=== PATIENT | female | born 1950 | race Caucasian/White ===

== ENCOUNTER 2020-04-02 22:30 | Inpatient (IN) | payer MEDICARE, MEDICAID, SELFPAY ==
--- NOTE | ~2020-04-02 | CT_ITS ---
EXAMINATION: CT abdomen pelvis wo con DATE: 04/03/2020 00:41 INDICATION: Abdominal pain. Gastrointestinal bleeding. TECHNIQUE: Computed tomography (CT) of the abdomen and pelvis was performed without intravenous contr ast. Automated exposure control and iterative reconstruction technique were employed. Exam dose: 159 8.79 mGy-cm total exam DLP. COMPARISON: None. FINDINGS: The lung bases are clear of consolidation. Normal heart size. No pericardial or pleural effusion. Small sliding hiatal hernia. Diffuse hepatic steatosis. No hepatic space-occupying mass lesion is evident. Hyperdense bile in the gallbladder. No gallbladder wall thickening or pericholecystic fluid or stranding is evident. No bile duct dilatation. No pancreatic mass lesion, calcification or ductal dilatation is evident. Normal splenic size. Several calcified splenic granulomas consistent with old granulomatous disease. No adrenal mass lesion. No apparent renal mass lesion is noted on this limited noncontrast examination. No ureteral calculus or hydroureteronephrosis. There is a Taylor catheter within the completely evacuated urinary bladder. Uterus and adnexal areas a re unremarkable. There is extensive calcification of the abdominal aorta and calcification at the origins of the patrice c, superior mesenteric and renal arteries as well as extensive iliac and femoral artery calcification . No abdominal aortic aneurysm. No intraperitoneal or retroperitoneal or pelvic mass lesion or adenopathy or ascites. There is a large umbilical hernia containing a large loop of nonobstructed non strangulated transvers e colon. Normal appendix. No bowel obstruction, bowel wall thickening, pneumatosis or intraperitoneal free air. Severe degenerative change in particular at the facet joints at L5-S1. Grade 1 anterolisthesis at L4- 5. There are erosive changes of the left sacroiliac joint. IMPRESSION: Large umbilical hernia containing one loop of nonobstructed colon Hepatic steatosis Reviewed, dictated and finalized at [facility]. Reviewed, dictated and finalized at location [facility]. 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
--- NOTE | ~2020-04-02 | XR_ITS ---
XR chest 1V portable DATE: 04/03/2020 02:24 INDICATION: Leukocytosis. Gastrointestinal bleeding. TECHNIQUE: Portable AP chest on 04/03/2020 at 0224 hours COMPARISON: 01/03/2004 PA and lateral chest FINDINGS: Normal heart size. Aortic calcification and mild unfolding. There is old pulmonary granulom atous disease. No pulmonary infiltrate or consolidation, pleural effusion or pulmonary vascular congestion or pneumo thorax. Severe osteoarthritic change at the left glenohumeral joint. There appears to be some deformity of th e right glenohumeral area. Diffuse osteopenia. IMPRESSION: No active cardiopulmonary disease Reviewed, dictated and finalized at location [facility]. ESTATE VALUER
--- NOTE | ~2020-04-02 | XR_ITS ---
EXAMINATION: XR chest port-a-cath/central 04/03/2020 16:55 INDICATION: Central line placement PROCEDURE: AP portable chest COMPARISON: No prior studies for comparison. FINDINGS: The lungs are clear. The cardiomediastinal silhouette is within normal limits. There are no pleural effusions. There is no pneumothorax suspected. There is a left IJ central line, tip near the junction of the brachiocephalic vein and SVC. There are advanced degenerative changes of the saritha ulders with age-indeterminate fracture of the right glenoid process. IMPRESSION: 1: NO ACUTE CARDIOPULMONARY DISEASE. 2: Age-indeterminate fracture right glenoid process. Advanced osteoarthritis of the glenohumeral join ts. Reviewed, dictated and finalized at location [facility]. CE REP IMPRESSION: 1: NO ACUTE CARDIOPULMONARY DISEASE. 2: Age-indeterminate fracture right glenoid process. Advanced osteoarthritis of the glenohumeral joints.
--- NOTE | ~2020-04-02 | US_ITS ---
EXAMINATION: US renal BI DATE: 04/03/2020 15:38 INDICATION: Acute on chronic kidney disease. TECHNIQUE: Multiple ultrasound grayscale images of the kidneys were obtained. COMPARISON: CT abdomen and pelvis 04/03/2020 FINDINGS: The right kidney measures 10.2 x 5.2 x 6.1 cm. The left kidney measures 9.0 x 5.6 x 3.5 cm. The kidne ys demonstrate normal parenchymal echogenicity. There is no hydronephrosis. The bladder is decompress ed by a Taylor catheter. IMPRESSION: 1. Normal kidneys. No hydronephrosis. Reviewed, dictated and finalized at location A. FICIAL BREEDING RANCH SUPERVISOR
--- NOTE | ~2020-04-02 | XR_ITS ---
XR chest 1V portable DATE: 04/05/2020 05:29 INDICATION: Hypotension TECHNIQUE: Portable AP chest on April 05, 2020 at 0508 hours COMPARISON: April 03, 2020 portable AP chest at 1632 hours FINDINGS: Left internal jugular central venous catheter tip overlies the proximal superior vena cava. No pulmonary infiltrate or consolidation, pleural effusion or pulmonary vascular congestion or pneumo thorax is evident. The cardiac and mediastinal silhouettes are unremarkable. There is aortic arch jake cification. Prominent osteoarthritic changes at the glenohumeral joints and chronic fracture deformity of the rig ht glenoid process of the scapula. Diffuse osteopenia. IMPRESSION: Left internal jugular central venous catheter tip overlying proximal superior vena cava; no pneumothorax No active cardiopulmonary disease Reviewed, dictated and finalized at location A. CIATE PROFESSOR OF GEOLOGY IMPRESSION: Left internal jugular central venous catheter tip overlying proxima l superior vena cava; no pneumothorax No active cardiopulmonary disease
[2020-04-02 22:29] VITALS: BP 92/55; PULSE 85; RESP 17; TEMP 36.5; O2SAT 96
--- NOTE | 2020-04-02 22:42 | ED.GIBLEED ---
HPI - GI Bleed General Chief complaint: GI Bleed Stated complaint: gi bleed Source: patient and EMS Mode of arrival: EMS Limitations: no limitations History of Present Illness HPI Narrative: A 70-year-old female came into the emergency department tonight with complaints of an upper GI bleed. Per her shelter the patient vomited once what appeared to be coffee-ground emesis. They note that they called the ambulance when she had a second episode of mary ann black emesis that was large in quantity. Patient is at A+O x1 at baseline and is unable to provide any meaningful history. Related Data Home Medications Medication Instructions Recorded Confirmed acetaminophen 650 mg PO Q6H PRN 04/02/20 bisacodyl 5 mg PO HS 04/02/20 diphenhydramine HCl [Diphenhist] 25 mg PO HS 04/02/20 docusate sodium 100 mg PO DAILY 04/02/20 heparin, porcine (PF) 5,000 unit SUBCUT Q8H 04/02/20 magnesium citrate 150 ml PO ONCE 04/02/20 quetiapine 25 mg PO HS 04/02/20 zinc sulfate 220 mg PO DAILY 04/02/20 Allergies Allergy/AdvReac Type Severity Reaction Status Date / Time No Known Allergies Allergy Unknown Verified 12/13/09 10:01 Review of Systems Review of Systems: ROS unobtainable: Yes unobtainable due to mental status PMFSH Past Medical History Medical History Pain associated with wound Pain in wound Exam Narrative: Exam Narrative: GENERAL: Well-appearing, well-nourished, and in no acute distress. Morbidly obese HEAD: Normocephalic, atraumatic. EYES: PERRLA and EOMI. ENT: Nares clear, no rhinorrhea or epistaxis. Mucous membranes dry. Tongue black with emesis. NECK: Supple. No adenopathy or masses. No carotid bruits or JVD CHEST: Clear to auscultation. No respiratory distress. No wheezes rales or rhonchi HEART: Regular rate and rhythm. No murmur heard. Normal peripheral pulses. ABDOMEN: Obese abdomen soft, nontender, nondistended, normal active bowel sounds. Large ventral wall hernia. : Taylor catheter in place EXTREMITIES: Normal range of motion. No edema. SKIN: Warm, dry, no rash. NEURO: No focal deficits. Alert and oriented x1. PSYCH: Normal mood and affect. Course Reevaluation(s) Reevaluation #1: Patient has been resting comfortably. She is receiving blood transfusion, her blood pressures have consistently improved to 120s over 70s. Patient resting comfortably at this time, has no further questions. Informed her of the plan to admit with a GI consult. Time: 01:55 Consultations Consultation #1: Case discussed with Dr. Flannery, gastroenterology. He has been made aware of the patient's presentation evaluation and findings in the work-up. After full discussion of the patient he agrees to consult and see the patient in the morning. Time: 00:17 Consultation #2: Is assessed with Dr. Arevalo, hospitalist services. Dr. Arevalo agrees to accept patient for continued management and admission. Time: 02:10 Vital Signs Vital signs: Vital Signs Temperature 36.5 C 04/02/20 22:29 Pulse Rate 85 04/02/20 22:29 Respiratory Rate 17 04/02/20 22:29 Blood Pressure 92/55 L 04/02/20 22:29 Pulse Oximetry 96 04/02/20 22:29 Temperature 36.2 C L 04/03/20 01:28 Pulse Rate 74 04/03/20 01:56 Respiratory Rate 21 H 04/03/20 01:56 Blood Pressure 123/74 04/03/20 01:56 Pulse Oximetry 98 04/03/20 01:56 MDM - GI Bleed MDM Narrative Medical decision making narrative: In brief this 70-year-old female was transferred into the emergency department from her shelter. Report on why the patient came in and what exactly was going on was unclear. We did know that she had 2 episodes of dark emesis that appeared to be like coffee grounds. Review of the results faxed to us from the patient's recent admission shows that she is receiving heparin shots for clot prevention. Upon review of the documents that showed that she was receiving 5000 units daily. Next patient was
--- NOTE | 2020-04-02 22:44 | ECG_ITS ---
Measurements Intervals [place] Rate: 80 P: 28 MS: 127 QRS: -9 QRSD: 93 T: 103 QT: 384 QTc: 445 Interpretive Statements SINUS RHYTHM INCOMPLETE RIGHT BUNDLE BRANCH BLOCK LOW QRS VOLTAGE IN PRECORDIAL LEADS BORDERLINE ST-T WAVE ABNORMALITY- DIFFUSE LEADS BASELINE ARTIFACT- I, II, III, AVR, AVL, AVF, V1-V6 BORDERLINE ECG Electronically Signed On 04-03-2020 7:06:24 FRONT OF HOUSE MANAGER by Leonardo James D.O.
[2020-04-02] MEDS: PANTOPRAZOLE SODIUM IV 40 MG VIAL 80 MG IV PUSH (22:54)
[2020-04-02] MEDS: LACTATED RINGERS 1,000 ML 999 ML IV CONT (22:54)
--- NOTE | 2020-04-02 23:29 | PC.NURSE ---
this rn spoke to stephani rn at [facility]. she states pt is a full code but isn't ableto fax code sheet over because she can't find it, but she states it says full code in her chart. she also states pt had combs placed yesterday at this facility. i informed stephani that pt has never been at this facility. she then states she actually went to [facility] because a newer nurse had thought pt's picc line wasn't in all the way, her combs was placed there, unknown reason why, and was d/c back to [facility]. stephani stated pt has been a resident at [facility] since march 13, isn't able to tell me her admitting diagnosis there. stephani states shes going to fax us as much information she can find on pt. hongt notified.
[2020-04-02 23:40] VITALS: BP 82/55; PULSE 82; RESP 19; O2SAT 100
[2020-04-02 23:44] LABS: Basophils Absolute Auto 0.1 K/mm3 (0.0-0.1); Basophils Percent Auto 0.3 % (0.2-1.2); Eosinophils Absolute Auto 0.1 K/mm3 (0-0.3); Eosinophils Percent Auto 0.4 % (0-4.4); Hematocrit 21.2 % (37.0-47.0); Immature Granulocyte Absolute 0.82 K/mm3 (0.00-0.031); Immature Granulocyte Percent A 3.8 % (0-0.5); Lymphocytes Absolute Auto 1.36 K/mm3 (0.9-3.2); Lymphocytes Percent Auto 6.2 % (18.3-44.2); Mean Corpuscular HGB Conc 31.1 g/dl (32-36); Mean Corpuscular Hemoglobin 32.7 pg (26-34); Mean Platelet Volume 8.7 fl (7.4-10.4); Monocytes Absolute Auto 1.2 K/mm3 (0.1-0.6); Monocytes Percent Auto 5.6 % (2.6-8.5); Neutrophils Absolute Auto 18.2 K/mm3 (1.3-6.7); Neutrophils Percent Auto 83.7 % (45.5-73.1); Platelet Count Result 422 k/mm3 (150-375); Red Blood Count 2.02 M/mm3 (4.2-5.4); Red Cell Distribution Width 18.5 % (11.5-14.5); White Blood Count 21.8 K/mm3 (4.5-10.0)
[2020-04-02 23:49] VITALS: BP 71/54; PULSE 75; RESP 20; O2SAT 100
[2020-04-02 23:55] LABS: INR 1.3; Prothrombin Time 16.4 Seconds (11.1-14.7)
[2020-04-02 23:56] LABS: Partial Thromboplastin Time 38.8 SECONDS (22.3-36.8)
[2020-04-02 23:57] LABS: Lactic Acid Reflex 1.1 mmol/L (0.7-2.1)
[2020-04-02 23:59] VITALS: BP 89/75; PULSE 83; RESP 14; O2SAT 100
[2020-04-03] VITALS (40 sets, daily range): BP systolic 74–128; BP diastolic 35–96; PULSE 57–166; RESP 12–25; TEMP 35.5–36.6; O2SAT 96–100; BMI 47.9
--- NOTE | 2020-04-03 | ECHO_ITS ---
Patient Info Name: Radha Rey Age: 70 years : 1950 Gender: Female Ht: 67 in Wt: 306 lbs BSA: 2.64 m2 HR: 120 bpm BP: 85 / 43 mmHg Heart Rhythm: Atrial Fibrillation Technical Quality: Fair Exam Date: 04/03/2020 1:53 PM Exam Location: [facility] Pulmonary Patient Status: Inpatient Admit Date: 04/03/2020 Staff Ordering Physician: Abraham Jacinto PA-C Drop Crew Laborer: Earl Roberson RDCS Attending Provider: Abraham Jacinto PA-C Referring Physician: Orville CARREON; Exam Type: CA echo doppler color flow Study Info Indications I48.1 - Persistent atrial fibrillation Complete two-dimensional, color flow and Doppler transthoracic echocardiogram is performed. History/Risk Factors Hypoxia; Afib, CKD3, COPD, DM, upper GIB, HTN. Summary 1. Complete two-dimensional, color flow and Doppler transthoracic echocardiogram is performed. 2. Technically difficult study with limited views. 3. Rhythm is atrial fibrillation with rapid ventricular response. 4. Left ventricular chamber dimension is normal. 5. Left ventricular wall thickness is mildly increased. 6. Left ventricular ejection fraction is normal, estimated at 50-55%%. 7. The left ventricular diastolic function is indeterminate. 8. No prior echo available for comparison. Left Ventricle Left ventricular chamber dimension is normal. Left ventricular wall thickness is mildly increased. Left ventricular ejection fraction is normal, estimated at 50-55%%. The left ventricular diastolic function is indeterminate. Left ventricular endocardium is not well visualized preventing adequate wall motion interpretation. Right Ventricle Right ventricular chamber dimension is normal. Right ventricular systolic function is normal. Ventricular Septum Interventricular septum not well visualized by 2D imaging. Left Atria Left atrial chamber dimension is normal. Right Atria Right atrial chamber dimension is normal. Aortic Valve Aortic valve is not well visualized. There is mild aortic valve sclerosis. There is no aortic valve regurgitation. There is no aortic valve stenosis. Pulmonic Valve Pulmonary valve is not well visualized. There is trace pulmonic regurgitation. There is no pulmonic valve stenosis. Mitral Valve Mitral valve is not well visualized. There is no mitral valve stenosis. There is mild mitral valve regurgitation. Tricuspid Valve There is mild tricuspid valve regurgitation. The tricuspid valve is not well visualized. There is no significant tricuspid valve stenosis. No pulmonary hypertension, estimated pulmonary arterial systolic pressure is 32 mmHg. Pericardium/Pleural Pericardium is normal in appearance with no evidence for significant pericardial effusion. Inferior Vena Cava Inferior vena cava is not well visualized. Aorta The Empty is not well visualized. Left Ventricular Outflow Tract Name Value Normal LVOT 2D LVOT Diameter 1.8 cm Mitral Valve Name Value Normal MV Doppler
[2020-04-03 00:04] LABS: Hemoglobin 6.6 g/dL (12.0-15.0)
[2020-04-03 00:05] LABS: Alanine Aminotransferase 14 U/L (4-35); Albumin Level 2.4 g/dL (3.5-5.1); Alkaline Phosphatase 190 U/L (38-126); Anion Gap 28 mmol/L (8-16); Aspartate Amino Transferase 18 U/L (14-36); Bilirubin,Total 0.4 mg/dL (0.2-1.3); Blood Urea Nitrogen 109 mg/dL (7-17); Calcium 7.5 mg/dL (8.4-10.2); Carbon Dioxide 9 mmol/L (22-30); Chloride 98 mmol/L (98-107); Estimated CRCL calculation 13 ml/min; Estimated Glomerular Filt Rate 7; Glucose 103 mg/dL (65-105); Hypochromasia 1+ (NORMAL); Large Platelets Present; Lipase 156 U/L (23-300); Magnesium 2.1 mg/dL (1.6-2.3); Platelet Estimate Adequate (Adequate); Potassium 6.2 mmol/L (3.4-5.0); Sodium 135 mmol/L (137-145)
[2020-04-03] MEDS: SODIUM CHLORIDE 0.9% IV 250 ML 30 ML IV CONT (01:13)
[2020-04-03 02:56] LABS: Add Urine Microscopic? YES; Appearance Urine Cloudy (Clear); Bacteria Urine 2+ /hpf; Bilirubin Urine Negative (Negative); Blood Urine 2+ (Negative); Color Urine Yellow (Yellow); Glucose Urine UA Negative (Negative); Ketones Urine Trace mg/dL (Negative); Leukocyte Esterase Ur 3+ LEU/UL (Negative); Mucus Urine Rare /lpf; Nitrate Urine Negative (Negative); Protein Urine 2+ mg/dL (Negative); RBC Urine 21-50 /hpf (0-2); Specific Grav Ur 1.015 (1.001-1.035); Squamous Epithelial Cell Urine Rare /hpf (Few); Urobilinogen Urine Negative mg/dL (<2.0); WBC Urine >75 /hpf
--- NOTE | 2020-04-03 03:40 | PM.IMHP ---
H&P: HPI History of Present Illness Date/Time: 04/03/20 03:40 Chief Complaint: Rectal bleeding. Narrative: This is a 70 year old demented, diabetic female with known COPD, CKD, and chronic atrial fibrillation presented to the hospital [facility] with a complaint of vomiting up coffee ground emesis at the [facility] x 2. The patient is severely demented and does not know why she is here. She currently denies any symptoms. She was evaluated in the ER [facility] and found to have a low H/H of 6.6/21.2 as well as a blood pressure of 91/59 mm Hg. She was treated with an IV fluid bolus and now receiving a pRBC transfusion. The patient does have an indwelling urinary catheter for an unknown reason. The patient has been on 5000 U of [place] heparin daily per retirement paperwork. No further history is obtainable from the patient. Review of Systems Review of Systems: All systems reviewed & are unremarkable except as noted in HPI and below PMFSH Past Medical History Medical History Chronic atrial fibrillation Chronic kidney disease, stage 3 COPD (chronic obstructive pulmonary disease) Diabetes mellitus (Unknown) Essential hypertension Hyperlipidemia Osteomyelitis right heel Pain associated with wound Pain in wound Paroxysmal atrial fibrillation with rapid ventricular response (Unknown) Pressure ulcer, heel b/l heels; recent right heel osteomyelitis 02/2020 Sacral decubitus ulcer, stage IV Family History Family History Father Unknown family medical history Mother Unknown family medical history Social History Social History Smoking status: Never smoker Alcohol intake: unknown Substance use: unknown Gender identity (if verbalized by the patient): Female Spiritual care concerns: No Meds Home Medications and Allergies Home Medications Medication Instructions Recorded Confirmed Type acetaminophen 650 mg PO Q6H PRN 04/02/20 04/03/20 History diphenhydramine HCl [Diphenhist] 25 mg PO HS 04/02/20 04/03/20 History docusate sodium 100 mg PO BID PRN 04/02/20 04/03/20 History heparin, porcine (PF) 5,000 unit SUBCUT Q8H 04/02/20 04/03/20 History magnesium citrate 296 ml PO ONCE 04/02/20 04/03/20 History quetiapine 25 mg PO HS 04/02/20 04/03/20 History zinc sulfate 220 mg PO DAILY 04/02/20 04/03/20 History ascorbic acid (vitamin C) 1,000 mg PO DAILY 04/03/20 04/03/20 History bisacodyl 10 mg RECTAL DAILY PRN 04/03/20 04/03/20 History levothyroxine [Levoxyl] 50 mcg PO DAILY 04/03/20 04/03/20 History magnesium hydroxide [Milk of 30 ml PO PRN PRN 04/03/20 04/03/20 History Magnesia] multivitamin [Multiple Vitamins] 1 tablet PO DAILY 04/03/20 04/03/20 History Allergies Allergy/AdvReac Type Severity Reaction Status Date / Time No Known Allergies Allergy Unknown Verified 04/03/20 04:47 Vital Signs Vital Signs - 24 hr 04/02/20 22:29 04/02/20 23:40 04/02/20 23:49 Temperature 36.5 C Pulse Rate 85 82 75 Respiratory Rate 17 19 20 Blood Pressure 92/55 L 82/55 L 71/54 L Pulse Oximetry 96 100 100 04/02/20 23:59 04/03/20 00:06 04/03/20 00:48 Temperature Pulse Rate 83 74 Respiratory Rate 14 20 Blood Pressure 89/75 L 96/45 L 126/67 Pulse Oximetry 100 100 04/03/20 01:10 04/03/20 01:15 04/03/20 01:20 Temperature 36.4 C 36.4 C L 36.2 C L Pulse Rate 77 80 74 Respiratory Rate 25 H 22 H 25 H Blood Pressure 118/76 97/55 L 101/58 L Pulse Oximetry 100 100 100 04/03/20 01:25 04/03/20 01:28 04/03/20 01:56 Temperature 36.3 C L 36.2 C L Pulse Rate 72 75 74 Respiratory Rate 19 21 H 21 H Blood Pressure 106/74 110/61 123/74 Pulse Oximetry 100 100 98 04/03/20 02:40 04/03/20 02:45 04/03/20 02:50 Temperature 35.9 C L 35.8 C L 35.8 C L Pulse Rate 68 73 76 Respiratory Rate 22 H 12 22 H Blood Pressure 96/49 L 91/59 L 102/82 Pulse Oximetry 100 100
--- NOTE | 2020-04-03 04:03 | ECG_ITS ---
Measurements Intervals [place] Rate: 73 P: 54 [place]: 126 QRS: 38 QRSD: 92 T: 22 QT: 407 QTc: 451 Interpretive Statements SINUS RHYTHM INCOMPLETE RIGHT BUNDLE BRANCH BLOCK BORDERLINE ST-T WAVE ABNORMALITY- DIFFUSE LEADS BASELINE ARTIFACT- I, II, III, AVR, AVL, AVF, V1-V6 BORDERLINE ECG Electronically Signed On 04-03-2020 7:11:33 LINDERMAN OPERATOR by Leonardo James D.O.
--- NOTE | 2020-04-03 04:13 | ADMGEN ---
This patient, Radha Rey, was admitted to [facility] Surg Room 301-01. Patient/family oriented to hospital policies and general routines including ID bracelet, bed and alarms, visiting hours, pain management, procedures, bathroom and other care routines, personal items, smoking policy, room service/diet, and visiting hours. Information on how to activate the Rapid Response Team has been discussed. Patient/Family are encouraged to report perceived risks to care and to ask questions if they do not understand what they are told or what they should do.
[2020-04-03 06:25] LABS: Glucose Point of Care 104 (65-105)
[2020-04-03 06:31] LABS: Lactic Acid Reflex 0.7 mmol/L (0.7-2.1)
[2020-04-03 06:33] LABS: Anion Gap 24 mmol/L (8-16); Blood Urea Nitrogen 108 mg/dL (7-17); Calcium 7.3 mg/dL (8.4-10.2); Carbon Dioxide 9 mmol/L (22-30); Chloride 101 mmol/L (98-107); Estimated CRCL calculation 14 ml/min; Estimated Glomerular Filt Rate 8; Glucose 97 mg/dL (65-105); Potassium 6.1 mmol/L (3.4-5.0); Sodium 134 mmol/L (137-145)
--- NOTE | 2020-04-03 08:00 | PC.NURSE ---
This patient, Radha Rey, was received from [[id number]] on 04/03/20 at 0800. REPORT RECEIVED FROM DEB TORREZ. Patient/family oriented to unit policies and routines
[2020-04-03 08:37] LABS: Glucose Point of Care 120 (65-105)
--- NOTE | 2020-04-03 08:43 | WPDGICN ---
Assessment and Plan Assessment and plan (1) Hyperkalemia: Code(s): E87.5 - Hyperkalemia Status: Acute (2) Acute on chronic renal failure: Code(s): N17.9 - Acute kidney failure, unspecified; N18.9 - Chronic kidney disease, unspecified Status: Acute Assessment and Plan: Patient with significant renal insufficiency and electrolyte imbalance. Likely contributes to her nausea vomiting or perhaps to stress gastritis. This will be monitored and treated by primary care and Nephrology service will follow with you. (3) Leukocytosis: Code(s): D72.829 - Elevated white blood cell count, unspecified Status: Acute (4) Complicated UTI (urinary tract infection): Code(s): N39.0 - Urinary tract infection, site not specified Status: Acute (5) Upper GI bleed: Code(s): K92.2 - Gastrointestinal hemorrhage, unspecified Status: Acute Assessment and Plan: Patient X. It is coffee-ground emesis at the correction consistent with upper GI blood loss. Ulceration or gastritis felt likely. Plan is to maintain on proton pump inhibitor therapy. Monitor hemoglobin transfuse till stable is necessary. EGD will be deferred until her electrolytes and renal function has improved some. We will monitor closely at the present time. Avoid anticoagulation. (6) Chronic atrial fibrillation: Code(s): I48.20 - Chronic atrial fibrillation, unspecified Status: Acute Assessment and Plan: Patient has chronic atrial fibrillation. Given her recent upper GI bleeding. Would hold anticoagulation. Patient is on heparin daily at the correction it is uncertain whether this was for atrial fibrillation are prophylaxis against DVT. But may need to be held until we are certain she is not actively bleeding. (7) COPD (chronic obstructive pulmonary disease): Code(s): J44.9 - Chronic obstructive pulmonary disease, unspecified Status: Acute (8) Macrocytic anemia: Code(s): D53.9 - Nutritional anemia, unspecified Status: Acute Assessment and Plan: Patient with macrocytic anemia suggesting more than simple acute blood loss anemia. Will continue monitor hemoglobin. Folate B12 levels will be obtained as well as liver function test. Will monitor hemoglobin after transfusion. GI Consult Note Consult date/time: 04/03/20 08:43 HPI: Radha Rey is a 70 year old female I am consulted at the request of the emergency room. Patient is currently correction patient with severe dementia. Apparently it is submitted coffee-ground emesis and for this reason sent to the emergency room. She was lb to have anemia with acute renal failure. And evidence of urinary tract infection. Patient is unable to add any additional useful history. At the correction she apparently is on a heparin drip daily for uncertain reasons has an indwelling Taylor catheter. She may have had underlying renal issues according since some of the notes. At the present time she is no longer vomiting. Has no evidence for active GI blood loss. She does have dried blood around her mouth. At the time of evaluation elevated potassium was identified this reason patient transferred to the IMU for closer monitoring and therapy. Patient does have a history of atrial fibrillation but aside from the heparin is on no other anticoagulation that I can identify. [facility] Past Medical History Medical History Chronic atrial fibrillation Chronic kidney disease, stage 3 COPD (chronic obstructive pulmonary disease) Diabetes mellitus Essential hypertension Hyperlipidemia Osteomyelitis Pain associated with wound Pain in wound Social History Social History Smoking status: Never smoker Alcohol intake: unknown Substance use: unknown Gender identity (if verbalized by the patient): Female Spiritual care concerns: No
--- NOTE | 2020-04-03 08:45 | ECG_ITS ---
Measurements Intervals [place] Rate: 130 P: [place]: 0 QRS: 53 QRSD: 88 T: 230 QT: 301 QTc: 444 Interpretive Statements ATRIAL FIBRILLATION WITH RAPID VENTRICULAR RESPONSE INCOMPLETE RIGHT BUNDLE BRANCH BLOCK ST-T WAVE ABNORMALITY IN ANTEROLAT/INF LEADS- CONSIDER ISCHEMIA BASELINE ARTIFACT- I, II, III, AVR, AVL, AVF, V1-V4 ABNORMAL ECG Electronically Signed On 04-03-2020 9:34:57 NUCLEAR MEDICINE SPECIALIST by Leonardo James D.O.
[2020-04-03] MEDS: INSULIN HUMAN REGULAR (*BKC) 100 UNITS/ML 10 UNITS IV PUSH ×2 (08:55→11:59)
[2020-04-03] MEDS: DEXTROSE 50% 25 GM/50 ML SYRINGE IV PUSH ×2 (08:56→11:59)
[2020-04-03] MEDS: METOPROLOL TARTRATE INJ 5 MG/5 ML VIAL IV PUSH ×2 (08:56→09:57)
[2020-04-03] MEDS: SODIUM BICARBONATE 8.4% 50 MEQ/50 ML VIAL IV PUSH ×2 (08:56→11:59)
[2020-04-03 09:14] LABS: Basophils Absolute Auto 0.1 K/mm3 (0.0-0.1); Basophils Percent Auto 0.6 % (0.2-1.2); Eosinophils Absolute Auto 1.4 K/mm3 (0-0.3); Eosinophils Percent Auto 7.5 % (0-4.4); Hematocrit 25.3 % (37.0-47.0); Hemoglobin 8.4 g/dL (12.0-15.0); Immature Granulocyte Absolute 0.73 K/mm3 (0.00-0.031); Lymphocytes Absolute Auto 1.76 K/mm3 (0.9-3.2); Lymphocytes Percent Auto 9.7 % (18.3-44.2); Mean Corpuscular HGB Conc 33.2 g/dl (32-36); Mean Corpuscular Hemoglobin 31.3 pg (26-34); Mean Corpuscular Volume 94.4 fl (80-100); Mean Platelet Volume 9.8 fl (7.4-10.4); Monocytes Absolute Auto 0.2 K/mm3 (0.1-0.6); Monocytes Percent Auto 1.3 % (2.6-8.5); Neutrophils Absolute Auto 13.9 K/mm3 (1.3-6.7); Neutrophils Percent Auto 76.9 % (45.5-73.1); Platelet Count Result 270 k/mm3 (150-375); Red Blood Count 2.68 M/mm3 (4.2-5.4); Red Cell Distribution Width 20.7 % (11.5-14.5); White Blood Count 18.1 K/mm3 (4.5-10.0)
[2020-04-03 09:31] LABS: Hypochromasia 1+ (NORMAL); Platelet Estimate Adequate (Adequate)
[2020-04-03 09:32] LABS: Anisocytosis 1+ (NORMAL)
[2020-04-03] MEDS: SOD HYPOCHLORITE 1/4 STRENGTH 473 ML 1 APPLIC TOPICAL ×2 (09:39→20:08)
--- NOTE | 2020-04-03 09:41 | P.PNIM_ITS ---
Progress Note: A&P Assessment and Plan (1) Upper GI bleed: Code(s): K92.2 - Gastrointestinal hemorrhage, unspecified Status: Acute Assessment and Plan: Suspected acute GIB with anemia; Hgb 6.6 on arrival; transfused 2 u pRBCs and Hgb now 8.[address] Estes consulted from ED and appreciate recommend ations; holding on EGD until DINESH and electrolyte abnormalities improved. On heparin 5000 u subq Q8 hr for a. fib/stroke ppx; this has been held * Monitor serial H&H, transfuse prn * Continue PPI * Correct electrolyte abnormalities * await further rec from GI (2) Chronic atrial fibrillation: Code(s): I48.20 - Chronic atrial fibrillation, unspecified Status: Acute Assessment and Plan: With RVR this morning. Not on any rate controlling medications. heparin for stroke ppx; this has been held due to above * Consult to Dr. Moreno; appreciate input * Per Cardiology rec, okay with metoprolol IV 5 mg x 2; if refractory, then will do 5 mg/hr dilt drip if BP allows * Await further rec from Cardiology * Hold on a/c (3) Complicated UTI (urinary tract infection): Code(s): N39.0 - Urinary tract infection, site not specified Status: Acute Assessment and Plan: With suspected chronic Taylor - unclear duration. UA suspicious for UTI. UCx pending. BCx also pending. Placed on empiric Rocephin from ED * Continue Rocephin; tailor antibiotics to cultures * Monitor (4) Leukocytosis: Code(s): D72.829 - Elevated white blood cell count, unspecified Status: Acute Assessment and Plan: Likely secondary to UTI, although patient has chronic sacral and b/l heel wounds. This appears to be improving with treatment with Rocephin for UTI. She is afebrile * Continue treatment for UTI for now * Pending cultures, consider ID consultation * Monitor for now (5) Thrombocytosis: Code(s): D47.3 - Essential (hemorrhagic) thrombocythemia Status: Acute Assessment and Plan: Appears to have improved overnight. * Monitor (6) Acute on chronic renal failure: Code(s): N17.9 - Acute kidney failure, unspecified; N18.9 - Chronic kidney disease, unspecified Status: Acute Assessment and Plan: Per physical chart, recent stay at [facility] has reports of most recent stable baseline Cr at ~2.50. Acute on chronic renal failure likely secondary volume depletion from GI bleed * Cr improved to 5.20 today; monitor closely * Consultation to Nephrology; appreciate recommendations * Patient on PPI drip at 50 mL/hr from ED; will continue with this for fluid resuscitation for now as patient has history of volume overload in past; no known h/o CHF * Monitor (7) Hyperkalemia: Code(s): E87.5 - Hyperkalemia Status: Acute Assessment and Plan: Likely related to DINESH and GIB. K 6.1 this morning; was given sodium bicarb, IV dextrose/insulin per chief engineer research * repeat BMP this morning * Treat hyperkalemia prn (8) Metabolic acidosis with increased anion gap and accumulation of organic acids: Code(s): E87.2 - Acidosis Status: Acute Assessment and Plan: felt to be related to hyperkalemia. AG 24 this morning; improving. Lactic acid WNL * Correct hyperkalemia abnormalities * Monitor BMP closely
--- NOTE | 2020-04-03 09:41 | PM.IMPN ---
Progress Note: A&P Assessment and Plan (1) Upper GI bleed: Code(s): K92.2 - Gastrointestinal hemorrhage, unspecified Status: Acute Assessment and Plan: Suspected acute GIB with anemia; Hgb 6.6 on arrival; transfused 2 u pRBCs and Hgb now 8.[address] Estes consulted from ED and appreciate recommendations; holding on EGD until DINESH and electrolyte abnormalities improved. On heparin 5000 u subq Q8 hr for a. fib/stroke ppx; this has been held Monitor serial H&H, transfuse prn Continue PPI Correct electrolyte abnormalities await further rec from GI (2) Chronic atrial fibrillation: Code(s): I48.20 - Chronic atrial fibrillation, unspecified Status: Acute Assessment and Plan: With RVR this morning. Not on any rate controlling medications. heparin for stroke ppx; this has been held due to above Consult to Dr. Moreno; appreciate input Per Cardiology rec, okay with metoprolol IV 5 mg x 2; if refractory, then will do 5 mg/hr dilt drip if BP allows Await further rec from Cardiology Hold on a/c (3) Complicated UTI (urinary tract infection): Code(s): N39.0 - Urinary tract infection, site not specified Status: Acute Assessment and Plan: With suspected chronic Taylor - unclear duration. UA suspicious for UTI. UCx pending. BCx also pending. Placed on empiric Rocephin from ED Continue Rocephin; tailor antibiotics to cultures Monitor (4) Leukocytosis: Code(s): D72.829 - Elevated white blood cell count, unspecified Status: Acute Assessment and Plan: Likely secondary to UTI, although patient has chronic sacral and b/l heel wounds. This appears to be improving with treatment with Rocephin for UTI. She is afebrile Continue treatment for UTI for now Pending cultures, consider ID consultation Monitor for now (5) Thrombocytosis: Code(s): D47.3 - Essential (hemorrhagic) thrombocythemia Status: Acute Assessment and Plan: Appears to have improved overnight. Monitor (6) Acute on chronic renal failure: Code(s): N17.9 - Acute kidney failure, unspecified; N18.9 - Chronic kidney disease, unspecified Status: Acute Assessment and Plan: Per physical chart, recent stay at [facility] has reports of most recent stable baseline Cr at ~2.50. Acute on chronic renal failure likely secondary volume depletion from GI bleed Cr improved to 5.20 today; monitor closely Consultation to Nephrology; appreciate recommendations Patient on PPI drip at 50 mL/hr from ED; will continue with this for fluid resuscitation for now as patient has history of volume overload in past; no known h/o CHF Monitor (7) Hyperkalemia: Code(s): E87.5 - Hyperkalemia Status: Acute Assessment and Plan: Likely related to DINESH and GIB. 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 AG 24 this morning; improving. Lactic acid WNL Correct hyperkalemia abnormalities Monitor BMP closely (9) Essential hypertension: Code(s): I10 - Essential (primary) hypertension Status: Acute Assessment and Plan: Soft BP on arrival; improvement this morning. Monitor closely with metoprolol IV and if diltiazem initiated (10) Hyperlipidemia: Code(s): E78.5 - Hyperlipidemia, unspecified Status: Acute Assessment and Plan:
[2020-04-03 10:58] LABS: Folic Acid 10.9 ng/mL (2.76->20); Vitamin B12 > 1000.0 pg/mL (239-931)
[2020-04-03 11:11] LABS: Hematocrit 28.9 % (37.0-47.0); Hemoglobin 9.6 g/dL (12.0-15.0)
[2020-04-03 11:40] LABS: Anion Gap 26 mmol/L (8-16); Blood Urea Nitrogen 113 mg/dL (7-17); Calcium 7.6 mg/dL (8.4-10.2); Carbon Dioxide 10 mmol/L (22-30); Chloride 103 mmol/L (98-107); Estimated CRCL calculation 13 ml/min; Estimated Glomerular Filt Rate 8; Glucose 81 mg/dL (65-105); Magnesium 2.1 mg/dL (1.6-2.3); Sodium 139 mmol/L (137-145)
--- NOTE | 2020-04-03 11:45 | PM.CNCAR ---
Assessment and Plan Assessment and plan (1) Paroxysmal atrial fibrillation with rapid ventricular response: Code(s): I48.0 - Paroxysmal atrial fibrillation Status: Acute Assessment and Plan: Patient is a 70-year-old white woman with history of paroxysmal atrial fibrillation, hypertension, hyperlipidemia, diabetes mellitus, chronic kidney disease stage 3 (baseline creatinine approximately 2.5), morbid obesity, hypothyroidism, COPD, osteomyelitis (with recent treatment of right foot), foot ulcers, MRSA bacteremia (02/2020), stage IV sacral wound, dementia, who is seen in cardiac consultation for atrial fibrillation with rapid ventricular response. -patient has paroxysmal atrial fibrillation with rapid ventricular response, in the setting of upper GI bleed with marked anemia and acute renal failure with urinary tract infection, hyperkalemia, and metabolic acidosis. -she was not on rate control agents as an outpatient. -given her low normal blood pressure in the setting of acute GI bleed, continue with intravenous fluid volume resuscitation with transfusion and careful monitoring of hemoglobin. She had improvement of her hemoglobin to 9.6 following 2 units packed red blood cells. -Patient may need invasive monitoring of her blood pressure in the ICU, in the setting of possible septic shock, acute upper GI bleed, and atrial fibrillation with rapid ventricular response. -improve rate control with initiation of IV amiodarone infusion per protocol as tolerated, given systolic blood pressure in the mid 80s with heart rate in the 130s. (Patient has already received metoprolol tartrate 5 mg IV on 2 occasions as well as a 0.25 mg IV dose of digoxin.) -improve rate control with addition of metoprolol tartrate 5 mg IV q.6 hours as needed for heart rate greater than 120 and as tolerated by systolic blood pressure greater than 90. -not initiating anticoagulation in the setting of her acute GI bleed. (Patient was not on an anticoagulant beyond DVT prophylactic doses of subcutaneous heparin [facility] -obtain TSH and monitor magnesium, potassium, and metabolic acidosis. -she was on levothyroxine as an outpatient and resume levothyroxine supplementation intravenously as per primary service. -obtain echo to evaluate cardiac structure and function. -obtain serial troponin I. Patient denies chest pain and EKG without evidence of acute injury, but with ST depression in anterolateral and inferior leads with rapid ventricular response. (2) Essential hypertension: Code(s): I10 - Essential (primary) hypertension Status: Acute Assessment and Plan: -blood pressure low normal this admission in the setting of urinary tract infection with possible sepsis and acute upper GI bleed. (3) Sacral decubitus ulcer, stage IV: Code(s): L89.154 - Pressure ulcer of sacral region, stage 4 Status: Acute Assessment and Plan: -management as per surgery and primary services. (4) Pressure ulcer, heel: Code(s): L89.609 - Pressure ulcer of unspecified heel, unspecified stage Status: Acute Assessment and Plan: -management as per surgery and primary services. (5) Hyperkalemia: Code(s): E87.5 - Hyperkalemia Status: Acute Assessment and Plan: -she has hyperkalemia in the setting of acute renal failure. -management as per primary service. (6) Metabolic acidosis with increased anion gap and accumulation of organic acids: Code(s): E87.2 - Acidosis Status: Acute Assessment and Plan: -she has metabolic acidosis in the setting of acute renal failure and possible sepsis. (7) Acute on chronic renal failure: Code(s): N17.9 - Acute kidney failure, unspecified; N18.9 - Chronic kidney disease, unspecified Status: Acute Assessment and Plan: -she has acute renal failure in the setting of urinary tract infection and acute upper GI bleed with hypotension and severe anemia. -
[2020-04-03] MEDS: DIGOXIN INJ 250 MCG/ML 2 ML AMP (*BKC) IV PUSH (11:58)
[2020-04-03] MEDS: SODIUM CHLORIDE 0.9% IV 250 ML 999 ML IV CONT (12:01)
[2020-04-03 12:15] LABS: Glucose Point of Care 108 (65-105)
--- NOTE | 2020-04-03 13:19 | PM.CNGS ---
Assessment and Plan Assessment and plan (1) Pressure ulcer, heel: Code(s): L89.609 - Pressure ulcer of unspecified heel, unspecified stage Status: Acute Assessment and Plan: Unstageable pressure ulcers on bilateral heels. The left heel has an intact, firm dry eschar and is stable. No surrounding cellulitis. Continue with local wound care with betadine swabs. The right heel has a firm eschar with moist necrotic tissue beneath this and would benefit from excisional debridement in the OR. There is no surrounding cellulitis. The patient will need to be stabilized from a cardiac and medical standpoint prior to proceeding with surgical intervention for the right heel ulcer. Continue local wound care while receiving medical treatment. Elevated heels off bed, she currently has heel boots from the intermediate which can be used. (2) Sacral decubitus ulcer, stage IV: Code(s): L89.154 - Pressure ulcer of sacral region, stage 4 Status: Acute Assessment and Plan: Stage IV sacral decubitus ulcer appears stable. No indication for surgical intervention. Continue local wound care with Dakin's dressing changes daily. Frequent turns. Would benefit from specialty bed. (3) Paroxysmal atrial fibrillation with rapid ventricular response: Code(s): I48.0 - Paroxysmal atrial fibrillation Status: Acute Assessment and Plan: Continue management per Cardiology. (4) Acute on chronic renal failure: Code(s): N17.9 - Acute kidney failure, unspecified; N18.9 - Chronic kidney disease, unspecified Status: Acute (5) Metabolic acidosis with increased anion gap and accumulation of organic acids: Code(s): E87.2 - Acidosis Status: Acute (6) Macrocytic anemia: Code(s): D53.9 - Nutritional anemia, unspecified Status: Acute Assessment and Plan: Significant anemia with upper GI bleed on admission, s/p transfusion of 2 units of PRBCs. GI consulted, on PPI drip. (7) Complicated UTI (urinary tract infection): Code(s): N39.0 - Urinary tract infection, site not specified Status: Acute Assessment and Plan: Continue IV antibiotics and management per primary team. (8) Diabetes mellitus: Code(s): E11.9 - Type 2 diabetes mellitus without complications Status: Acute (9) COPD (chronic obstructive pulmonary disease): Code(s): J44.9 - Chronic obstructive pulmonary disease, unspecified Status: Acute (10) Acute upper gastrointestinal bleeding: Code(s): K92.2 - Gastrointestinal hemorrhage, unspecified Status: Acute (11) Hyperkalemia: Code(s): E87.5 - Hyperkalemia Status: Acute Additional Plan Discussed the patient's case and plan of care with Dr. Estes. Thank you for allowing us to see the patient in consultation. We will continue to follow along. History of Present Illness Consult details Consult date: 04/03/20 Reason for consult: wound care (Bilateral heel ulcers) Requesting physician: Abraham Jacinto PA-C Narrative: This is a 70-year-old female with dementia and a history of multiple co-morbidities including but not limited to paroxysmal atrial fibrillation, hypertension, diabetes mellitus, chronic kidney disease stage 3, and COPD. Due to her dementia, her history is obtained from her electronic medical record and patient chart from the [facility]. She was recently treated with acute osteomyelitis of the right calcaneus and MRSE bacteremia with IV Linezolid through 02/10/21 and oral levofloxacin through 02/19/21. She was brought into the ER via EMS from the [facility] last night due to coffee ground emesis. She was admitted to the medical floor and has since been transferred to the IMU. She has a history of paroxysmal atrial fibrillation but went into a. fib with RVR since admitted. Patient was also found to have acute on chronic renal failure with severe electrolyte abnormalities. She was also anemic and has been gi
[2020-04-03] MEDS: LACTATED RINGERS 1,000 ML 999 ML IV CONT (13:52)
--- NOTE | 2020-04-03 15:03 | WPDCNINT ---
Assessment and Plan Assessment and plan (1) Paroxysmal atrial fibrillation with rapid ventricular response: Code(s): I48.0 - Paroxysmal atrial fibrillation Status: Acute Assessment and Plan: Patient with proximal AFib, with RVR this morning, was given metoprolol, digoxin per Cardiology -patient dropped her blood pressures, I given 1 L bolus of IV fluids with improvement in heart rate -amiodarone has been ordered by Cardiology but was not yet given. Continue to hold for now -echocardiogram showed EF of 50-55%, patient is in AFib, LV diastolic function is indeterminate, no pulmonary hypertension (2) Upper GI bleed: Code(s): K92.2 - Gastrointestinal hemorrhage, unspecified Status: Acute Assessment and Plan: Patient presented with (3) Metabolic acidosis with increased anion gap and accumulation of organic acids: Code(s): E87.2 - Acidosis Status: Acute Assessment and Plan: Metabolic acidosis likely related to uremia, acute on chronic kidney disease, dehydration, GI bleeding -patient given L IV fluid bolus, will repeat another 500 IV fluid bolus -will start bicarb infusion -nephrology has been consulted -renal ultrasound has been ordered -will check urine lytes (4) Acute on chronic renal failure: Code(s): N17.9 - Acute kidney failure, unspecified; N18.9 - Chronic kidney disease, unspecified Status: Acute Assessment and Plan: Acute kidney disease likely related to GI bleed, dehydration, -consulted nephrology -continue to monitor urine output, renal function, electrolytes (5) Hyperkalemia: Code(s): E87.5 - Hyperkalemia Status: Acute Assessment and Plan: Patient has been treated with bicarb insulin D50, -will check CK level, BMP (6) Complicated UTI (urinary tract infection): Code(s): N39.0 - Urinary tract infection, site not specified Status: Acute Assessment and Plan: UA revealed UTI, continue ceftriaxone Urine cultures have been obtained and pending (7) Sacral decubitus ulcer, stage IV: Code(s): L89.154 - Pressure ulcer of sacral region, stage 4 Status: Acute Assessment and Plan: Appreciate surgery evaluation recommendation (8) Pressure ulcer, heel: Code(s): L89.609 - Pressure ulcer of unspecified heel, unspecified stage Status: Acute Assessment and Plan: Appreciate surgical evaluation recommendation (9) Hypotension: Code(s): I95.9 - Hypotension, unspecified Status: Acute Assessment and Plan: Hypotension could be related to AFib RVR, medications such as metoprolol, sepsis/infection -patient will be given additional IV fluid bolus -start on maintenance IV fluids -central line inserted if required -will start patient on pressors if needed Additional Plan Discuss with sonia Rosado at [phone]. Updated regarding patient's condition and plan of care. He stated that patient was in the hospital couple of months ago and then was at rehab for along time for her wounds on the buttocks as well as the heels. Patient has had very poor quality of life, I did tell him that she was did not want intubation or done CPR if her heart stops, he agrees to her wishes as he recognizes that her health has been deteriorating and quality of life is very poor. Code status: DNR/DNI Critical care time spent: 45 minutes Due to a high probability of clinically significant, life threatening deterioration, the patient required my highest level of preparedness to intervene emergently and I personally spent this critical care time directly and personally managing the patient. This critical care time included obtaining a history; examining the patient; pulse oximetry; ordering and review of studies; arranging urgent treatment with development of a management plan; evaluation of patient's response to treatment; frequent reassessment; and discussions with other providers. It was exclusive of separ
[2020-04-03] MEDS: SODIUM CHLORIDE 0.9% IV 500 ML IV CONT ×2 (15:08→16:37)
--- NOTE | 2020-04-03 15:46 | PC.NURSE ---
This patient, Radha Rey, was transferred to [ICU-9] on 04/03/20 at 1546. Personal belongings sent with patient. Report given to [MARIE TORREZ]. Appropriate documentation sent with patient.
--- NOTE | 2020-04-03 16:27 | WPDPROCEDUR ---
Procedures Central Line Placement Left IJ: Central Line Date: 04/03/20 Central Line Time: 16:28 Discussed w/ the patient/family/POA,the placement of a central venous catheter, including its clinical necessity/indication & associated potential risks, benifits and alternatives.: Yes The patient/family/POA understand(s) and acknowledge(s) the need to proceed with central venous catheter insertion as an important element of the patient's clinical management.: Yes Time Out Performed: Yes Patient Position: trendelenburg Patient placed on monitor/pulse ox: Yes Provider Prep: mask, sterile gown, sterile gloves, Max. sterile barrier precautions, cap and hand hygiene with conventional soap/water or alcohol based hand rub Central line prep: 2% Chlorhexidine scrub Local anesthesia used: lidocaine 2% Amount of anesthesia used (ml): 3 Sterile US Technique with sterile gel/sterile probe covers: Yes Central line lumen inserted: triple Belarusian: 12 Length (cm): 16 Depth of Insertion (cm): 16 Post Procedure: sutured in place, good blood return, transparent dressing, hemostatic product, antimicrobial product, securement product and aseptic technique maintained throughout procedure Post procedure x-ray: tip of catheter in good position and no pneumothorax seen Patient tolerated procedure: well Complications: none Additional comments: Patient is very dehydrated and hypovolemia, the left jugular vein was collapsing with every inspiration. Tried 4 times after which I was able to read the guidewire and placed the central line catheter.
[2020-04-03] MEDS: SODIUM BICARBONATE 8.4% 50 MEQ/50 ML SYRINGE 100 MEQ IV PUSH (16:34)
--- NOTE | 2020-04-03 16:50 | PM.CNNEP ---
Assessment and Plan Assessment and plan (1) Acute on chronic renal failure: Code(s): N17.9 - Acute kidney failure, unspecified; N18.9 - Chronic kidney disease, unspecified Status: Acute Assessment and Plan: Radha has chronic kidney disease. This is based on the chart she says that she remembers seeing a kidney doctor in the past but she does not remember who it is. The patient certainly has acute kidney injury as well. This is most likely related to the low blood pressure, septic syndrome, and GI bleeding. Dehydration is certainly playing a role as well. She could have obstruction as well and will get a renal ultrasound. Rhabdomyolysis is always a possibility. We will check a CPK. Interstitial nephritis is always a possibility because of her being in and out of hospitals last couple of months however this does not usually come with low blood pressure. Glomerulonephritis is less likely in this scenario. At this point will get a renal ultrasound, urine electrolytes and eosinophils, and a CPK. I agree with giving her IV fluids and bicarb (2) Hypotension: Code(s): I95.9 - Hypotension, unspecified Status: Acute Assessment and Plan: The patient's blood pressure is low. She is getting IV fluids in seems to be responding somewhat. Her atrial fibrillation was probably contributing to this but also the GI bleeding and dehydration. . She is getting cultures done and is on antibiotics. (3) Upper GI bleed: Code(s): K92.2 - Gastrointestinal hemorrhage, unspecified Status: Acute Assessment and Plan: GI is on the case. She is on pantoprazole. (4) Paroxysmal atrial fibrillation with rapid ventricular response: Code(s): I48.0 - Paroxysmal atrial fibrillation Status: Acute Assessment and Plan: Back in sinus rhythm right now. This is a paroxysmal event however. (5) Metabolic acidosis with increased anion gap and accumulation of organic acids: Code(s): E87.2 - Acidosis Status: Acute Assessment and Plan: The patient has metabolic acidosis.. Her lactic acid is normal. Her sugars are fine so that is unlikely to be ketosis. This is most likely due to accumulation of acids because of the renal failure. She is getting IV bicarb because of the severity of the acidosis and also to help with the hyperkalemia (6) Hyperkalemia: Code(s): E87.5 - Hyperkalemia Status: Acute Assessment and Plan: Potassium is high due to renal failure. She also has GI bleeding which increases absorption of the potassium which is in the blood in the intestines. She can't receive Kayexalate because she is NPO. Hydrating her and giving her bicarb should help this. She is also getting insulin and D50. (7) Complicated UTI (urinary tract infection): Code(s): N39.0 - Urinary tract infection, site not specified Status: Acute Assessment and Plan: The patient is on antibiotics. Urine cultures are pending (8) Essential hypertension: Code(s): I10 - Essential (primary) hypertension Status: Acute Assessment and Plan: Antihypertensives are on hold (9) Diabetes mellitus: Code(s): E11.9 - Type 2 diabetes mellitus without complications Status: Acute Assessment and Plan: On Accu-Cheks and sliding-scale insulin (10) Pressure ulcer, heel: Code(s): L89.609 - Pressure ulcer of unspecified heel, unspecified stage Status: Acute Assessment and Plan: Due to sedentary state. (11) Sacral decubitus ulcer, stage IV: Code(s): L89.154 - Pressure ulcer of sacral region, stage 4 Status: Acute Assessment and Plan: This is quite large apparently. This may be a source of her sepsis if the urine is not. History of Present Illness Reason for Consult Consult date: 04/03/20 Chief Complaint Chief complaint: Acute upper GI bleed History of Present Illness Narrative:
[2020-04-03] MEDS: NOREPINEPHRINE 8 MG/D5W 250 ML 8 MG/250 ML BAG 9.38 MG IV CONT (17:10)
[2020-04-03] MEDS: SODIUM BICARBONATE 8.4% 150 MEQ in DEXTROSE 5% 1,000 ML 950 ML 50 MEQ IV CONT (17:12)
[2020-04-03 17:45] LABS: Basophils Absolute Auto 0.1 K/mm3 (0.0-0.1); Basophils Percent Auto 0.3 % (0.2-1.2); Eosinophils Percent Auto 0.1 % (0-4.4); Hematocrit 29.1 % (37.0-47.0); Hemoglobin 9.6 g/dL (12.0-15.0); Immature Granulocyte Percent A 4.1 % (0-0.5); Lymphocytes Absolute Auto 1.75 K/mm3 (0.9-3.2); Mean Corpuscular Hemoglobin 31.2 pg (26-34); Mean Corpuscular Volume 94.5 fl (80-100); Mean Platelet Volume 8.6 fl (7.4-10.4); Monocytes Percent Auto 4.6 % (2.6-8.5); Neutrophils Absolute Auto 18.2 K/mm3 (1.3-6.7); Neutrophils Percent Auto 82.9 % (45.5-73.1); Platelet Count Result 426 k/mm3 (150-375); Red Blood Count 3.08 M/mm3 (4.2-5.4); Red Cell Distribution Width 21.2 % (11.5-14.5)
[2020-04-03 18:22] LABS: Hemoglobin A1C 4.9 % (<5.7)
--- NOTE | 2020-04-03 18:28 | PC.NURSE ---
This patient, Radha Rey, was received from [IMU ] on 04/03/20 at 1600. Patient/family oriented to unit policies and routines
[2020-04-03 18:31] LABS: Alanine Aminotransferase 16 U/L (4-35); Albumin Level 2.3 g/dL (3.5-5.1); Alkaline Phosphatase 199 U/L (38-126); Anion Gap 23 mmol/L (8-16); Aspartate Amino Transferase 28 U/L (14-36); Bilirubin,Total 0.3 mg/dL (0.2-1.3); Blood Urea Nitrogen 103 mg/dL (7-17); Calcium 7.2 mg/dL (8.4-10.2); Carbon Dioxide 17 mmol/L (22-30); Chloride 100 mmol/L (98-107); Creatine Kinase 39 U/L (30-135); Estimated CRCL calculation 14 ml/min; Estimated Glomerular Filt Rate 8; Glucose 97 mg/dL (65-105); Magnesium 1.8 mg/dL (1.6-2.3); Phosphorus 4.3 mg/dL (2.5-4.5); Potassium 5.6 mmol/L (3.4-5.0); Sodium 140 mmol/L (137-145)
[2020-04-03 18:41] LABS: Troponin I < 0.012 ng/mL (0.000-0.034)
[2020-04-03 18:47] LABS: Glucose Point of Care 101 (65-105)
[2020-04-03] MEDS: CENTRAL LINE FLUSH 10 ML IV PUSH (20:08)
[2020-04-03 23:51] LABS: Glucose Point of Care 129 (65-105)
[2020-04-04] VITALS (25 sets, daily range): BP systolic 87–138; BP diastolic 48–117; PULSE 61–106; RESP 18–22; TEMP 36.4–36.7; O2SAT 97–100; BMI 47.9
[2020-04-04 03:31] LABS: Basophils Absolute Auto 0.1 K/mm3 (0.0-0.1); Basophils Percent Auto 0.3 % (0.2-1.2); Eosinophils Absolute Auto 0.1 K/mm3 (0-0.3); Eosinophils Percent Auto 0.2 % (0-4.4); Hematocrit 29.1 % (37.0-47.0); Hemoglobin 9.6 g/dL (12.0-15.0); Immature Granulocyte Absolute 0.79 K/mm3 (0.00-0.031); Immature Granulocyte Percent A 3.1 % (0-0.5); Lymphocytes Absolute Auto 1.99 K/mm3 (0.9-3.2); Lymphocytes Percent Auto 7.7 % (18.3-44.2); Mean Corpuscular Hemoglobin 31.3 pg (26-34); Mean Corpuscular Volume 94.8 fl (80-100); Mean Platelet Volume 8.3 fl (7.4-10.4); Monocytes Percent Auto 3.7 % (2.6-8.5); Nucleated Red Blood Cells Perc 0.1 % (0.0-0.2); Platelet Count Result 388 k/mm3 (150-375); Red Blood Count 3.07 M/mm3 (4.2-5.4); Red Cell Distribution Width 21.4 % (11.5-14.5); White Blood Count 25.8 K/mm3 (4.5-10.0)
[2020-04-04 03:45] LABS: Alanine Aminotransferase 17 U/L (4-35); Albumin Level 2.3 g/dL (3.5-5.1); Alkaline Phosphatase 219 U/L (38-126); Anion Gap 20 mmol/L (8-16); Aspartate Amino Transferase 24 U/L (14-36); Bilirubin,Total 0.3 mg/dL (0.2-1.3); Blood Urea Nitrogen 101 mg/dL (7-17); Calcium 7.3 mg/dL (8.4-10.2); Carbon Dioxide 18 mmol/L (22-30); Chloride 97 mmol/L (98-107); Estimated CRCL calculation 13 ml/min; Estimated Glomerular Filt Rate 8; Glucose 149 mg/dL (65-105); Magnesium 1.8 mg/dL (1.6-2.3); Potassium 5.3 mmol/L (3.4-5.0); Sodium 135 mmol/L (137-145)
[2020-04-04] MEDS: NOREPINEPHRINE 8 MG/D5W 250 ML 8 MG/250 ML BAG 16.88 MG IV CONT (05:27)
[2020-04-04] MEDS: CENTRAL LINE FLUSH 10 ML IV PUSH ×3 (05:32→20:04)
[2020-04-04] MEDS: LEVOTHYROXINE SODIUM INJ 100 MCG/5 ML VIAL 25 MCG IV PUSH (05:32)
[2020-04-04] MEDS: SOD HYPOCHLORITE 1/4 STRENGTH 473 ML 1 APPLIC TOPICAL ×2 (08:46→20:04)
--- NOTE | 2020-04-04 09:00 | PM.PNNEP ---
Progress Note: A&P Assessment and Plan (1) Acute on chronic renal failure: Code(s): N17.9 - Acute kidney failure, unspecified; N18.9 - Chronic kidney disease, unspecified Status: Acute Assessment and Plan: Radha has chronic kidney disease. This is based on the chart she says that she remembers seeing a kidney doctor in the past but she does not remember who it is. Recent baseline creatinine is unknown. The patient certainly has acute kidney injury as well. Renal ultrasound is unremarkable Urine eosinophils pending Urine electrolytes are not collected yet CPK is okay Bicarbonate level is better. Creatinine is stable but not better Not making much urine. This is most likely related to the low blood pressure, septic syndrome, and GI bleeding. Dehydration is certainly playing a role as well. She may have a mildly delayed recovery as she could have an element of ATN Continue IV fluids and bicarb Patient has multiple comorbidities. He will hold off on dialysis for now. She is breathing comfortably without oxygen and her electrolytes are okay/improving right now. Discussed at length with Dr. Marroquin (2) Hypotension: Code(s): I95.9 - Hypotension, unspecified Status: Acute Assessment and Plan: The patient's blood pressure is better She is getting IV fluids in seems to be responding somewhat. Her atrial fibrillation was probably contributing to this but also the GI bleeding and dehydration. . She is getting cultures done and is on antibiotics. (3) Upper GI bleed: Code(s): K92.2 - Gastrointestinal hemorrhage, unspecified Status: Acute Assessment and Plan: GI is on the case. She is on pantoprazole. (4) Paroxysmal atrial fibrillation with rapid ventricular response: Code(s): I48.0 - Paroxysmal atrial fibrillation Status: Acute Assessment and Plan: Back in sinus rhythm right now. This is a paroxysmal event however. (5) Metabolic acidosis with increased anion gap and accumulation of organic acids: Code(s): E87.2 - Acidosis Status: Acute Assessment and Plan: The patient has metabolic acidosis.. This is improving Anion gap dropped from 24-20 (6) Hyperkalemia: Code(s): E87.5 - Hyperkalemia Status: Acute Assessment and Plan: Potassium is still high but better. Bicarbonate level and fluid should help. (7) Complicated UTI (urinary tract infection): Code(s): N39.0 - Urinary tract infection, site not specified Status: Acute Assessment and Plan: The patient is on antibiotics. Urine cultures are pending (8) Essential hypertension: Code(s): I10 - Essential (primary) hypertension Status: Acute Assessment and Plan: Antihypertensives are on hold (9) Diabetes mellitus: Code(s): E11.9 - Type 2 diabetes mellitus without complications Status: Acute Assessment and Plan: On Accu-Cheks and sliding-scale insulin (10) Pressure ulcer, heel: Code(s): L89.609 - Pressure ulcer of unspecified heel, unspecified stage Status: Acute Assessment and Plan: Due to sedentary state. (11) Sacral decubitus ulcer, stage IV: Code(s): L89.154 - Pressure ulcer of sacral region, stage 4 Status: Acute Assessment and Plan: This is quite large apparently. This may be a source of her sepsis if the urine is not. Subjective Date/time seen: 04/04/20 09:00 Interval history: Radha is alert. She denies shortness of breath. She is in no pain Review of Systems Cardiovascular: Cardiovascular: Reports no additional cardiovascular complaints Respiratory: Respiratory: Reports no additional respiratory complaints Gastrointestinal: Gastrointestinal: Reports no additional gastrointestinal complaints Genitourinary: Genitourinary: Reports no additional female genitourinary complaints Exam Narrative: Exam Narrative: MEHRAN
--- NOTE | 2020-04-04 09:48 | PM.IMPN ---
Progress Note: A&P Assessment and Plan (1) Hypotension: Code(s): I95.9 - Hypotension, unspecified Status: Acute Assessment and Plan: Patient with HoTN probably related to AFib/RVR, dehydration and acute GIB; can not exclude sepsis. BP improved with fluid bolus but still needed to start Levophed. Wean Levophed as BP tolerates. Left message with son. (2) Metabolic acidosis with increased anion gap and accumulation of organic acids: Code(s): E87.2 - Acidosis Status: Acute Assessment and Plan: Related to the severe DINESH. AG 28 on admission. LA normal. Currently on bicarb drip. AG better today at 20. No ABG listed. Appreciate nephrology input. (3) Upper GI bleed: Code(s): K92.2 - Gastrointestinal hemorrhage, unspecified Status: Acute Assessment and Plan: Suspected acute GIB with anemia; Hgb 6.6 on arrival; transfused 2 u pRBCs and Hgb now 9.[address] Estes consulted from ED and appreciate his recommendations. Holding on EGD until current condition improves. Heparin stopped. Continue to monitor H/H. Transfuse as needed. Continue Protonix. (4) Chronic atrial fibrillation: Code(s): I48.20 - Chronic atrial fibrillation, unspecified Status: Chronic Assessment and Plan: Patient developed RVR related to above. Not on any rate controlling medications at home. Heparin SQ but this is not for stroke ppx; heparin currently on hold. Patient converted to NSR after fluid bolus on 04/03. Cardiology following. Continue Telemetry monitoring. (5) Acute on chronic renal failure: Code(s): N17.9 - Acute kidney failure, unspecified; N18.9 - Chronic kidney disease, unspecified Status: Acute Assessment and Plan: Per physical chart, recent stay at [facility] has reports of most recent stable baseline Cr at ~2.50. Creatinine admission was 5.7 with a BUN 109. Acute on chronic renal failure likely secondary volume depletion from GI bleed and dehydration. Creatinine essentially unchanged since admission. Urine output is poor. Nephrology following. Albumin ordered. Currently on bicarb - consider increasing fluid rate with NS. (6) Complicated UTI (urinary tract infection): Code(s): N39.0 - Urinary tract infection, site not specified Status: Acute Assessment and Plan: With suspected chronic Taylor - unclear duration. UA suspicious for UTI. UCx pending. BCx also pending. Placed on empiric Rocephin. Follow up on culture results. (7) Leukocytosis: Code(s): D72.829 - Elevated white blood cell count, unspecified Status: Acute Assessment and Plan: Likely secondary to UTI, although patient has chronic sacral and b/l heel wounds. Currently on Vanco and Rocephin. She remains afebrile but WBC unchanged. Could be related to severe dehydration as well. Follow. (8) Hyperkalemia: Code(s): E87.5 - Hyperkalemia Status: Acute Assessment and Plan: Potassium 6.2 on admission. Likely related to DINESH and GIB. K 6.1 yesterday morning; was given sodium bicarb, IV dextrose/insulin per lottery manager. Currently on a bicarb drip. Potassium better at 5.3 today. Follow closely (9) Essential hypertension: Code(s): I10 - Essential (primary) hypertension Status: Chronic Assessment and Plan: Soft BP on arrival. As above (10) COPD (chronic obstructive pulmonary disease): Code(s): J44.9 - Chronic obstructive pulmonary disease, unspecified Status: Chronic Assessment and Plan: No acute issues/bronchospasm. Patient on room air
[2020-04-04] MEDS: SODIUM BICARBONATE 8.4% 150 MEQ in DEXTROSE 5% 1,000 ML 950 ML 75 MEQ IV CONT ×2 (11:05→23:57)
--- NOTE | 2020-04-04 11:28 | WPDINFPN2 ---
Progress Note: A&P Assessment and Plan (1) Leukocytosis: Code(s): D72.829 - Elevated white blood cell count, unspecified Status: Acute Assessment and Plan: Leukocytosis due to GI hemorrhage and necrotic wounds REC [facility] #1 Subjective Date/time seen: 04/04/20 11:28 Objective Data Vital Signs Vital Signs: Vital Signs - 24 hr 04/03/20 11:58 04/03/20 12:00 04/03/20 13:29 Temperature 35.6 C L Pulse Rate 131 H 140 H Respiratory Rate 22 H Blood Pressure 99/46 L 85/43 L Pulse Oximetry 100 04/03/20 14:00 04/03/20 14:50 04/03/20 15:20 Temperature Pulse Rate 125 H 62 Respiratory Rate Blood Pressure 74/35 L Pulse Oximetry 04/03/20 15:47 04/03/20 16:00 04/03/20 17:00 Temperature 35.6 C L Pulse Rate 57 L 65 67 Respiratory Rate 24 H 19 Blood Pressure 98/58 L Pulse Oximetry 100 100 04/03/20 17:10 04/03/20 17:20 04/03/20 17:25 Temperature 35.5 C L Pulse Rate 63 63 67 Respiratory Rate 19 Blood Pressure 78/47 L 78/47 L 82/51 L Pulse Oximetry 100 04/03/20 18:00 04/03/20 20:00 04/03/20 22:00 Temperature 36.6 C Pulse Rate 68 88 76 Respiratory Rate 13 16 18 Blood Pressure 93/74 L 106/96 H 115/77 Pulse Oximetry 99 100 99 04/03/20 23:54 04/04/20 00:03 04/04/20 00:40 Temperature 36.6 C Pulse Rate 82 82 74 Respiratory Rate 18 18 Blood Pressure 118/65 118/65 118/48 L Pulse Oximetry 100 100 04/04/20 02:00 04/04/20 04:00 04/04/20 04:46 Temperature 36.4 C L Pulse Rate 78 78 106 H Respiratory Rate 18 20 20 Blood Pressure 120/74 117/48 L 87/56 L Pulse Oximetry 98 100 100 04/04/20 05:27 04/04/20 05:39 04/04/20 07:43 Temperature Pulse Rate 102 H 92 106 H Respiratory Rate 22 H 18 Blood Pressure 117/72 121/107 H Pulse Oximetry 100 99 02/02/21 08:00 04/04/20 08:47 04/04/20 09:18 Temperature 36.5 C Pulse Rate 102 H 96 97 Respiratory Rate 18 Blood Pressure 119/96 H 93/63 L 117/58 L Pulse Oximetry 99 04/04/20 10:00 04/04/20 10:17 04/04/20 11:04 Temperature Pulse Rate 79 94 89 Respiratory Rate 19 Blood Pressure 97/77 L 112/92 H 120/100 H Pulse Oximetry 100 Intake/Output Intake/Output: Intake & Output 04/01/20 04/02/20 04/03/20 04/04/20 23:59 23:59 23:59 23:59 Intake Total 1000 2950 2000 Output Total 340 20 Balance 1000 2610 1980 Meds/Results Medications: Active Medications Generic Name Dose Route Start Last Admin Trade Name Freq PRN Reason Stop Dose Admin Dextrose 12.5 gm 04/03/20 04:48 Dextrose 50% 25 Gm/50 Ml Syringe IV PUSH PRN PRN Hypoglycemia Protocol Glucagon 1 mg 04/03/20 04:48 Glucagon For Inj 1 Mg Vial IM PRN PRN Hypoglycemia Protocol Dextrose 1,000 mls @ 100 mls/hr 04/03/20 04:48 Dextrose 5% 1,000 Ml IVPB PRN PRN Hypoglycemia Protocol Sodium Bicarbonate 150 meq/ 1,100 mls @ 75 mls/hr 04/03/20 16:00 04/04/20 11:05 Dextrose IV CONT 75 mls/hr .[id number] BRISSA Administration Norepinephrine Bitartrate 8 mg in 250 mls @ 9.375 mls/hr 04/03/20 16:40 04/04/20 11:04 Levophed 8 Mg/D5w 250 Ml IV CONT 5 mcg/min .[id number] BRISSA 9.38 mls/hr Titration Protocol 5 MCG/MIN Albumin Human 50 mls @ 50 mls/hr 04/04/20 12:00 Albutein IVPB 04/05/20 18:59 Q6HR BRISSA Piperacillin Sod/Tazobactam Sod 2.25 gm in 50 mls @ 100 mls/hr 04/04/20 12:00 Zosyn 2.25 Gm/D5w 50 Ml IVPB Q6HR BRISSA Insulin Aspart 2 - 5 units 04/03/20 06:00 04/04/20 05:40 Insulin Aspart (*Bkc) 100 Units/Ml SUB-Q Not Given Q6HR [facility] Protocol Levothyroxine Sodium 25 mcg 04/04/20 06:30 04/04/20 05:32 Levothyroxine Sodium Inj 100 Mcg/5 Ml Vial IV PUSH 25 mcg DAILY@0630 BRISSA Administration Metoprolol Tartrate 5 mg 04/03/20 13:38 Metoprolol Tartrate Inj 5 Mg/5 Ml Vial IV PUSH Q6HR PRN heart rate >120, if SBP at least 90 Sodium Chloride 10 ml 04/03/20 22:00 04/04/20 05:32 Cent[facility]
[2020-04-04] MEDS: ALBUMIN HUMAN 25% 12.5 GM/50ML 50 ML IVPB ×3 (11:53→23:54)
[2020-04-04 11:55] LABS: Glucose Point of Care 197 (65-105)
--- NOTE | 2020-04-04 12:15 | WPDINTPN ---
Progress Note: A&P Assessment and Plan (1) Shock: Code(s): R57.9 - Shock, unspecified Status: Acute Assessment and Plan: Hypotension could be related to AFib RVR, medications such as metoprolol, sepsis/infection -patient was adequately fluid-resuscitated -bicarb infusion for maintenance fluids -central line inserted on 04/03/2020 -patient currently on Levophed will maintain mean arterial pressures > 70 mmHg for adequate renal perfusion -patient has been started on Zosyn per Infectious Disease (2) Paroxysmal atrial fibrillation with rapid ventricular response: Code(s): I48.0 - Paroxysmal atrial fibrillation Status: Acute Assessment and Plan: Currently in sinus rhythm, rate controlled -on 04/03/2020 she was in AFib RVR and was given metoprolol, digoxin per Cardiology, patient dropped her blood pressure, was given IV fluid bolus and she converted to sinus rhythm -discussed with cardiology, given her echocardiogram report her shock does not seem to be cardiogenic at this time -echocardiogram showed EF of 50-55%, patient is in AFib, LV diastolic function is indeterminate, no pulmonary hypertension (3) Upper GI bleed: Code(s): K92.2 - Gastrointestinal hemorrhage, unspecified Status: Acute Assessment and Plan: Patient presented with coffee-ground emesis, severe anemia requiring 2 units of packed RBCs -hemoglobin is stable at 9.6 -will discontinue Protonix infusion and start patient on Protonix q.12 hours -GI has been following the patient, EGD once patient more stable (4) Metabolic acidosis with increased anion gap and accumulation of organic acids: Code(s): E87.2 - Acidosis Status: Acute Assessment and Plan: Metabolic acidosis likely related to uremia, acute on chronic kidney disease, dehydration, GI bleeding -resuscitated with adequate IV fluids -continue bicarb infusion (5) Acute on chronic renal failure: Code(s): N17.9 - Acute kidney failure, unspecified; N18.9 - Chronic kidney disease, unspecified Status: Acute Assessment and Plan: Acute kidney disease likely related to GI bleed, dehydration, infection/shock, hypovolemia -renal ultrasound 04/03/2020 showed normal kidneys and no hydronephrosis -discussed with Nephrology, will continue to monitor, if patient does not improve, will need dialysis -will add albumin -continue to monitor urine output, renal function, electrolytes (6) Hyperkalemia: Code(s): E87.5 - Hyperkalemia Status: Acute Assessment and Plan: Patient has been treated with bicarb insulin D50, -CK level of 39 (7) Complicated UTI (urinary tract infection): Code(s): N39.0 - Urinary tract infection, site not specified Status: Acute Assessment and Plan: UA revealed UTI, urine cultures growing Klebsiella pneumonia Continue Zosyn (8) Sacral decubitus ulcer, stage IV: Code(s): L89.154 - Pressure ulcer of sacral region, stage 4 Status: Acute Assessment and Plan: Appreciate surgery evaluation recommendation (9) Pressure ulcer, heel: Code(s): L89.609 - Pressure ulcer of unspecified heel, unspecified stage Status: Acute Assessment and Plan: Appreciate surgical evaluation recommendation Additional Plan On 04/03/2020: Discuss with sonia Rosado at [phone]. Updated regarding patient's condition and plan of care. He stated that patient was in the hospital couple of months ago and then was at rehab for along time for her wounds on the buttocks as well as the heels. Patient has had very poor quality of life, I did tell him that she was did not want intubation or done CPR if her heart stops, he agrees to her wishes as he recognizes that her health has been deteriorating and quality of life is very poor. Code status: DNR/DNI Critical care time spent: 33 minutes Due to a high probability of clinically significant, life threatening deterioration, the patient req
[2020-04-04 12:16] LABS: Lipase 1080 U/L (23-300)
[2020-04-04 12:17] LABS: Anion Gap 21 mmol/L (8-16); Blood Urea Nitrogen 102 mg/dL (7-17); Calcium 7.1 mg/dL (8.4-10.2); Carbon Dioxide 19 mmol/L (22-30); Chloride 94 mmol/L (98-107); Estimated CRCL calculation 14 ml/min; Estimated Glomerular Filt Rate 8; Glucose 202 mg/dL (65-105); Potassium 5.3 mmol/L (3.4-5.0); Sodium 134 mmol/L (137-145)
--- NOTE | 2020-04-04 12:18 | PM.PNCARD ---
Progress Note: A&P Assessment and Plan (1) Paroxysmal atrial fibrillation with rapid ventricular response: Code(s): I48.0 - Paroxysmal atrial fibrillation Status: Acute Assessment and Plan: 70-y/o female with h/o paroxysmal A fib, HTN, DM, CKD, morbid obesity, hypothyroidism, COPD, osteomyelitis/MRSA bacteremia (02/2020), stage IV sacral wound, dementia, who is seen in cardiac consultation for atrial fibrillation with rapid ventricular response. -patient has A fib with RVR in the setting of possible sepsis, DINESH, hyperkalemia, metabolic acidosis and anemia -She converted to normal sinus rhythm after fluid bolus. Amiodarone was never started. Agree with holding rhythm/rate control meds for now and monitor. -She is not candidate for AC -She continues to require pressors support. 2D echo reviewed and does not suggest cardiogenic shock. Likely septic vs hypovolemic shock -Also renal failure persists with poor urine output. (2) Essential hypertension: Code(s): I10 - Essential (primary) hypertension Status: Acute Assessment and Plan: -BP low now and she requires pressors support. (3) Sacral decubitus ulcer, stage IV: Code(s): L89.154 - Pressure ulcer of sacral region, stage 4 Status: Acute Assessment and Plan: -management as per surgery and primary services. (4) Pressure ulcer, heel: Code(s): L89.609 - Pressure ulcer of unspecified heel, unspecified stage Status: Acute Assessment and Plan: -management as per surgery and primary services. (5) Hyperkalemia: Code(s): E87.5 - Hyperkalemia Status: Acute Assessment and Plan: -she has hyperkalemia in the setting of acute renal failure. (6) Metabolic acidosis with increased anion gap and accumulation of organic acids: Code(s): E87.2 - Acidosis Status: Acute Assessment and Plan: -she has metabolic acidosis in the setting of acute renal failure and possible sepsis. (7) Acute on chronic renal failure: Code(s): N17.9 - Acute kidney failure, unspecified; N18.9 - Chronic kidney disease, unspecified Status: Acute Assessment and Plan: -Creatinine about the same with poor urine output. Nephrology on board . (8) Complicated UTI (urinary tract infection): Code(s): N39.0 - Urinary tract infection, site not specified Status: Acute Assessment and Plan: -antibiotic therapy as per primary service. (9) Upper GI bleed: Code(s): K92.2 - Gastrointestinal hemorrhage, unspecified Status: Acute Assessment and Plan: -GI deferring endoscopy initially in the setting of acute renal failure, hyperkalemia, acidosis, and hypotension. Subjective Date/time seen: 04/04/20 12:18 Patient currently in ICU requiring pressors support (Levophed). Urine output remains poor. She converted to normal sinus rhythm hence Amiodarone was never started. Review of Systems Review of Systems: All systems reviewed & are unremarkable except as noted in HPI and below Exam Narrative: Exam Narrative: Exam Narrative: General: Patient is morbidly obese, resting supine in bed. Appears uncomfortable in the setting of generalized abdominal pain, along with heel and sacral wounds. A&O to self and that she is in the hospital and that this is 2020; occasionally moaning in pain. HEENT: Normocephalic, EOMI, oral mucosa dry with dried blood on tongue/oropharynx Cardiovascular: tachycardia; irregularly irregular rhythm. No notable murmur, rub, or gallop. No heave. Carotid, radial, and posterior tibial pulses 1+ bilaterally. Respiratory: Lungs clear to auscultation all mas. Non-labored breathing. Breath sounds diminished bilaterally. Abdomen: Soft, non-tender, mildly distended, bowel sounds diminished. Lower central abdominal hernia noted, nontender. Back: Large 13x14 cm sacral ulcer, stage 4. Bone exposed. Tissue beefy red with some minimal bleeding. No gurpreet
--- NOTE | 2020-04-04 12:20 | CONS_ITS ---
DATE OF CONSULTATION: 04/04/2020 REASON FOR CONSULTATION: Leukocytosis. HISTORY OF PRESENT ILLNESS: A 70-year-old female who cannot provide any coherent history due to dementia. She has never been to this hospital in the past according to the computer record. Her paper record indicates hospital stay at [facility] approximately February 07 until March 13 for care of multiple decubitus ulcers and acute osteomyelitis. She was on levofloxacin and linezolid, apparently received 6 weeks until the and week of January. When admitted to [facility] on March 13, she was on no antibiotics. She received local wound care while at [facility]. Scant documentation also indicates that she was at [facility] Room on April 01, and the available record implies that there was PICC malfunction, but of no clinical consequence. However, she, on exam today, has no PICC in place. She was sent from her [facility] on the evening of with coffee-grounds emesis. She has had leukocytosis since arrival. Consultation requested today. She has been given ceftriaxone and vancomycin. She has been seen by General Surgery. Gastroenterology, Cardiology, Nephrology, and now myself. She has had oliguria while here, multiple electrolyte abnormalities, transient hypotension, AF, metabolic acidosis. Chart indicates a Taylor catheter placed, March. ALLERGIES: NONE KNOWN. HABITS: No tobacco. No alcohol currently. FAMILY HISTORY: Not available. PRESENT MEDICATIONS: No immunosuppressants. PAST MEDICAL HISTORY: Multiple decubitus ulcers, PAF, hyperlipidemia, hypertension, diabetes mellitus, COPD, stage 3 chronic renal insufficiency, chronic AF. SOCIAL HISTORY: No family at the bedside and previous occupation, if any, not available. REVIEW OF SYSTEMS: 14-point review attempted, not obtainable from the patient due to memory loss. PHYSICAL EXAMINATION: GENERAL: This is an elderly female who appears her actual age. No acute distress. VITAL SIGNS: She has been afebrile since arrival. Multiple temperature determinations and presumably these are all core temperatures, 120/100, 89, 19, 100% room air. SKIN: Multiple ecchymoses. No rashes. She has bilateral necrotic heel decubitus ulcers, each about 4 cm in diameter with fluctuance. No sinus tracts. No surrounding cellulitis. I reviewed the notes, but did not directly observe her sacrum due to no nurse availability and her massive obesity. NODES: No cervical adenopathy. She has no axillary adenopathy. EENT: The conjunctivae are normal. Pupils equal, round. Dry mucous membranes. No thrush. NECK: New left IJ triple-lumen catheter. No stridor. No meningismus. LUNGS: Clear to auscultation on tidal respirations, clear to percussion. CARDIAC: Soft S1, S2. Regular rate and rhythm. Pulses 1+. ABDOMEN: Massively obese, not distended. No organomegaly. No masses. EXTREMITIES: 3+ nonpitting edema and muscle wasting. NEUROLOGIC: She follows simple requests, minimally verbal. LABORATORY DATA: On arrival, white count 21.8, today 25.8; hemoglobin 9.6; platelets are 388. She has a mild left shift on differential. Multiple electrolyte abnormalities, BUN 101, creatinine 5.5, glucose 149. Hemoglobin A1c 4.9%. Alkaline phosphatase elevated. Albumin 2.3. TSH high, random cortisol level 57.6. Urine culture with Klebsiella pneumoniae. Blood cultures done after initiation of antibiotics. No growth after 24 hours. RADIOLOGY DATA: Echocardiogram with Doppler. No evidence of infection. Chest x-ray, atherosclerosis. OGD, osteoarthritis, left glenohumeral osteopenia. Abdomen pelvic CT, Taylor catheter in place, atherosclerosis, umbilical hernia, severe DJD in the lumbar spine, splenic granulomas, calcified. Renal
--- NOTE | 2020-04-04 12:32 | WPDGIPROGNO ---
Progress Note: A&P Assessment and Plan (1) Macrocytic anemia: Code(s): D53.9 - Nutritional anemia, unspecified Status: Acute (2) Upper GI bleed: Code(s): K92.2 - Gastrointestinal hemorrhage, unspecified Status: Acute Assessment and Plan: [facility] This is not persisted after admission the hospital. Likely related to poor renal function. Coffee-ground emesis evident. Plan to monitor hemoglobin. Continue proton pump inhibitor. EGD will be deferred until her overall status improves. Unless active bleeding develops. (3) Paroxysmal atrial fibrillation with rapid ventricular response: Code(s): I48.0 - Paroxysmal atrial fibrillation Status: Acute Assessment and Plan: Would avoid anticoagulation at this time until we are certain bleeding risk is subsided. (4) Sacral decubitus ulcer, stage IV: Code(s): L89.154 - Pressure ulcer of sacral region, stage 4 Status: Acute (5) Acute on chronic renal failure: Code(s): N17.9 - Acute kidney failure, unspecified; N18.9 - Chronic kidney disease, unspecified Status: Acute Assessment and Plan: Nephrology service following. Patient has rather significant azotemia and renal in sufficiency. (6) Chronic atrial fibrillation: Code(s): I48.20 - Chronic atrial fibrillation, unspecified Status: Acute (7) COPD (chronic obstructive pulmonary disease): Code(s): J44.9 - Chronic obstructive pulmonary disease, unspecified Status: Acute Subjective Date/time seen: 04/04/20 12:32 Patient now transferred to the ICU. Apparently had low blood pressure last evening. Now in atrial fibrillation with a rapid ventricular response. No additional GI bleeding reported. Patient is unable to add any other useful history. Review of Systems Review of Systems: ROS unobtainable: Yes unobtainable due to mental status Exam Narrative: Exam Narrative: Physical exam reveals her to be alert seen at bedrest. Vital Signs improved. Lungs are clear. Heart without murmur. Abdomen is obese soft nontender with no organomegaly. Large decubitus evident. Objective Data Vital Signs Vital Signs: Vital Signs - 24 hr 04/03/20 13:29 04/03/20 14:00 04/03/20 14:50 Temperature Pulse Rate 125 H 62 Respiratory Rate Blood Pressure 85/43 L Pulse Oximetry 04/03/20 15:20 02/01/21 15:47 04/03/20 16:00 Temperature 96.1 F L Pulse Rate 57 L 65 Respiratory Rate 24 H Blood Pressure 74/35 L 98/58 L Pulse Oximetry 100 04/03/20 17:00 04/03/20 17:10 04/03/20 17:20 Temperature Pulse Rate 67 63 63 Respiratory Rate 19 Blood Pressure 78/47 L 78/47 L Pulse Oximetry 100 04/03/20 17:25 04/03/20 18:00 04/03/20 20:00 Temperature 96 F L 97.9 F Pulse Rate 67 68 88 Respiratory Rate 19 13 16 Blood Pressure 82/51 L 93/74 L 106/96 H Pulse Oximetry 100 99 100 04/03/20 22:00 04/03/20 23:54 04/04/20 00:03 Temperature 97.8 F Pulse Rate 76 82 82 Respiratory Rate 18 18 Blood Pressure 115/77 118/65 118/65 Pulse Oximetry 99 100 04/04/20 00:40 04/04/20 02:00 04/04/20 04:00 Temperature 97.5 F L Pulse Rate 74 78 78 Respiratory Rate 18 18 20 Blood Pressure 118/48 L 120/74 117/48 L Pulse Oximetry 100 98 100 04/04/20 04:46 04/04/20 05:27 04/04/20 05:39 Temperature Pulse Rate 106 H 102 H 92 Respiratory Rate 20 22 H Blood Pressure 87/56 L 117/72 121/107 H Pulse Oximetry 100 100 04/04/20 07:43 04/04/20 08:00 04/04/20 08:47 Temperature 97.7 F Pulse Rate 106 H 102 H 96 Respiratory Rate 18 18 Blood Pressure 119/96 H 93/63 L Pulse Oximetry 99 99 04/04/20 09:18 04/04/20 10:00 04/04/20 10:17 Temperature Pulse Rate 97 79 94 Respiratory Rate 19 Blood Pressure 117/58 L 97/77 L 112/92 H Pulse Oximetry 100 04/04/20 11:04 04/04/20 12:00 04/04/20 12:05 Temperature 97.6 F Pulse Rate 89 71 86 Respiratory Rate 18 Blood Pressur
[2020-04-04] MEDS: PANTOPRAZOLE SODIUM IV 40 MG VIAL IV PUSH ×2 (12:56→20:04)
--- NOTE | 2020-04-04 14:23 | PCNSR ---
On 04/04/20, the student, Danielle Price, provided care and completed [facility] documentation on this patient. I have reviewed the student's documentation and agree with the findings.
--- NOTE | 2020-04-04 16:06 | PM.PROC ---
Procedure Note - Detailed Date of procedure: 04/04/20 Pre-op diagnosis: Unstageable necrotic right heel pressure ulcer Post-op diagnosis: other (Stage IV right heel pressure ulcer) Procedure performed: Excisional debridement of skin and subcutaneous tissues of the necrotic right heel ulcer measuring 6 x 5 x 2 cm Description of procedure: The patient was placed in the left lateral position using an assisted lift in the ICU. Her right foot was then propped up on a pillow and prepped and draped in the usual sterile fashion. Time out was performed confirming the patient, site, location, and procedure. Using scissors and pickups, I began debridement of the dark eschar off the wound bed. I used both scissors and a #15 blade scalpel to get the eschar removed. After this, I used the scissors to further debride some of the necrotic subcutaneous tissue at the medial aspect of the wound. This area had some undermining that extended 2 cm, but no significant tunnels or purulent fluid pockets found with digital probing. I then again inspected the wound, which now had some visible pink healthy tissue. I then measured the wound at 6 x 5 x 2 cm. and then applied Dakin's soaked 4x4 gauze packed into the wound bed and covered with dry gauze and kerlex wrap with medipore tape. She tolerated the procedure well and was repositioned to supine in the bed. Anesthesia: none Surgeon: JOLLY Holliday Director Of Enrollment: Dr. Mark Estes Estimated blood loss (mL): 0 Drains: No Packing: Yes (Packed with Dakin's 1/4 strength soaked 4x4 gauze ) Pathology: none sent Complications: No immediate complications Condition: stable Disposition: no change Findings: Stage IV necrotic right heel pressure ulcer
[2020-04-04 17:07] LABS: Glucose Point of Care 158 (65-105)
[2020-04-04] MEDS: TOLNAFTATE 1% POWDER 45 GM BTL 1 APPLIC TOPICAL (20:04)
[2020-04-04] MEDS: MELATONIN 5 MG TABLET PO (21:58)
[2020-04-04] MEDS: ACETAMINOPHEN 325 MG TABLET 650 MG PO (21:58)
[2020-04-04 23:57] LABS: Glucose Point of Care 139 (65-105)
[2020-04-05] VITALS (12 sets, daily range): BP systolic 90–142; BP diastolic 43–129; PULSE 60–89; RESP 10–20; TEMP 37.1; O2SAT 95–100
--- NOTE | 2020-04-05 00:39 | ECG_ITS ---
Measurements Intervals [place] Rate: 76 P: 67 FL: 129 QRS: 38 QRSD: 76 T: -2 QT: 372 QTc: 419 Interpretive Statements SINUS RHYTHM WITH SINUS ARRHYTHMIA LOW QRS VOLTAGE IN PRECORDIAL LEADS ST-T WAVE ABNORMALITY IN ANTEROLATERAL LEADS- CONSIDER ISCHEMIA BASELINE ARTIFACT- I, II, III, AVR, AVL, AVF, V1-V3, V5 ABNORMAL ECG Electronically Signed On 04-05-2020 7:04:34 SYSTEMS MGR by Leonardo James D.O.
[2020-04-05 04:58] LABS: Basophils Absolute Auto 0.1 K/mm3 (0.0-0.1); Basophils Percent Auto 0.4 % (0.2-1.2); Eosinophils Absolute Auto 0.2 K/mm3 (0-0.3); Hematocrit 26.5 % (37.0-47.0); Hemoglobin 8.8 g/dL (12.0-15.0); Immature Granulocyte Absolute 0.37 K/mm3 (0.00-0.031); Immature Granulocyte Percent A 1.7 % (0-0.5); Lymphocytes Percent Auto 9.7 % (18.3-44.2); Mean Corpuscular HGB Conc 33.2 g/dl (32-36); Mean Corpuscular Hemoglobin 31.3 pg (26-34); Mean Corpuscular Volume 94.3 fl (80-100); Mean Platelet Volume 8.6 fl (7.4-10.4); Monocytes Absolute Auto 1.1 K/mm3 (0.1-0.6); Monocytes Percent Auto 5.1 % (2.6-8.5); Neutrophils Absolute Auto 17.8 K/mm3 (1.3-6.7); Neutrophils Percent Auto 82.1 % (45.5-73.1); Platelet Count Result 241 k/mm3 (150-375); Red Blood Count 2.81 M/mm3 (4.2-5.4); Red Cell Distribution Width 20.6 % (11.5-14.5); White Blood Count 21.7 K/mm3 (4.5-10.0)
[2020-04-05 05:16] LABS: Creatinine Urine 58.3 mg/dL; Lactic Acid Reflex 1.4 mmol/L (0.7-2.1)
[2020-04-05 05:18] LABS: Alanine Aminotransferase 17 U/L (4-35); Albumin Level 2.4 g/dL (3.5-5.1); Alkaline Phosphatase 196 U/L (38-126); Anion Gap 23 mmol/L (8-16); Aspartate Amino Transferase 20 U/L (14-36); Bilirubin,Total 0.3 mg/dL (0.2-1.3); Blood Urea Nitrogen 100 mg/dL (7-17); CRP 6.3 mg/dL (<1.0); Calcium 6.9 mg/dL (8.4-10.2); Carbon Dioxide 21 mmol/L (22-30); Chloride 89 mmol/L (98-107); Estimated CRCL calculation 14 ml/min; Estimated Glomerular Filt Rate 8; Glucose 121 mg/dL (65-105); Lipase 853 U/L (23-300); Magnesium 1.7 mg/dL (1.6-2.3); Phosphorus 3.7 mg/dL (2.5-4.5); Potassium 4.8 mmol/L (3.4-5.0); Sodium 133 mmol/L (137-145)
[2020-04-05] MEDS: ACETAMINOPHEN 325 MG TABLET 650 MG PO (05:20)
[2020-04-05] MEDS: ALBUMIN HUMAN 25% 12.5 GM/50ML 50 ML IVPB ×3 (05:20→18:21)
[2020-04-05 05:21] LABS: Potassium Urine Random 46.6 meq/L; Sodium Urine Random 8 meq/L
[2020-04-05] MEDS: LEVOTHYROXINE SODIUM INJ 100 MCG/5 ML VIAL 25 MCG IV PUSH (05:21)
[2020-04-05] MEDS: CENTRAL LINE FLUSH 10 ML IV PUSH ×3 (05:22→21:57)
[2020-04-05 05:28] LABS: Creatinine Urine 59.5 mg/dL; Total Protein Urine Random 42 mg/dL; Ur Ttl Prot Creatinine Ratio 0.71 mg/mg (0-0.20)
[2020-04-05] MEDS: PANTOPRAZOLE SODIUM IV 40 MG VIAL IV PUSH ×2 (08:08→19:56)
[2020-04-05] MEDS: TOLNAFTATE 1% POWDER 45 GM BTL 1 APPLIC TOPICAL ×2 (08:11→19:56)
[2020-04-05] MEDS: SOD HYPOCHLORITE 1/4 STRENGTH 473 ML 1 APPLIC TOPICAL ×2 (08:11→19:56)
--- NOTE | 2020-04-05 08:36 | WPDINTPN ---
Progress Note: A&P Assessment and Plan (1) Shock: Code(s): R57.9 - Shock, unspecified Status: Acute Assessment and Plan: Hypotension could be related to AFib RVR, medications such as metoprolol, sepsis/infection -patient was adequately fluid-resuscitated -bicarb infusion for maintenance fluids -central line inserted on 04/03/2020 -currently off Levophed, any to be started to maintain adequate MAP -CONTINUE Zosyn per Infectious Disease (2) Paroxysmal atrial fibrillation with rapid ventricular response: Code(s): I48.0 - Paroxysmal atrial fibrillation Status: Acute Assessment and Plan: Currently in sinus rhythm, rate controlled -on 04/03/2020 she was in AFib RVR and was given metoprolol, digoxin per Cardiology, patient dropped her blood pressure, was given IV fluid bolus and she converted to sinus rhythm -discussed with cardiology, given her echocardiogram report her shock does not seem to be cardiogenic at this time -echocardiogram showed EF of 50-55%, patient is in AFib, LV diastolic function is indeterminate, no pulmonary hypertension (3) Upper GI bleed: Code(s): K92.2 - Gastrointestinal hemorrhage, unspecified Status: Acute Assessment and Plan: Patient presented with coffee-ground emesis, severe anemia requiring 2 units of packed RBCs -hemoglobin is stable -will discontinue Protonix infusion and start patient on Protonix q.12 hours -GI has been following the patient, EGD once patient more stable (4) Metabolic acidosis with increased anion gap and accumulation of organic acids: Code(s): E87.2 - Acidosis Status: Acute Assessment and Plan: Metabolic acidosis likely related to uremia, acute on chronic kidney disease, dehydration, GI bleeding -resuscitated with adequate IV fluids -continue bicarb infusion (5) Acute on chronic renal failure: Code(s): N17.9 - Acute kidney failure, unspecified; N18.9 - Chronic kidney disease, unspecified Status: Acute Assessment and Plan: Acute kidney disease likely related to GI bleed, dehydration, infection/shock, hypovolemia -renal ultrasound 04/03/2020 showed normal kidneys and no hydronephrosis -discussed with Nephrology, will give a trial of Bumex leave the patient starts making urine. - continue albumin -continue to monitor urine output, renal function, electrolytes -will discuss with patient's son regarding dialysis (6) Hyperkalemia: Code(s): E87.5 - Hyperkalemia Status: Acute Assessment and Plan: Patient has been treated with bicarb insulin D50, -CK level of 39 (7) Complicated UTI (urinary tract infection): Code(s): N39.0 - Urinary tract infection, site not specified Status: Acute Assessment and Plan: UA revealed UTI, urine cultures growing Klebsiella pneumonia Continue Zosyn (8) Sacral decubitus ulcer, stage IV: Code(s): L89.154 - Pressure ulcer of sacral region, stage 4 Status: Acute Assessment and Plan: Appreciate surgery evaluation recommendation (9) Pressure ulcer, heel: Code(s): L89.609 - Pressure ulcer of unspecified heel, unspecified stage Status: Acute Assessment and Plan: Right heel necrotic ulcer with exertional debridement of the skin and subcutaneous tissues was done on 04/04/2020 by surgery Additional Plan On 04/03/2020: Discuss with sonia Rosado at [phone]. Updated regarding patient's condition and plan of care. He stated that patient was in the hospital couple of months ago and then was at rehab for along time for her wounds on the buttocks as well as the heels. Patient has had very poor quality of life, I did tell him that she was did not want intubation or done CPR if her heart stops, he agrees to her wishes as he recognizes that her health has been deteriorating and quality of life is very poor. Code status: DNR/DNI Critical care time spent: 34 minutes Due to a high probability of clinically
[2020-04-05] MEDS: BUMETANIDE INJ 1 MG/4 ML VIAL 2 MG IV PUSH (10:20)
--- NOTE | 2020-04-05 10:31 | WPDGIPROGNO ---
Progress Note: A&P Assessment and Plan (1) Upper GI bleed: Code(s): K92.2 - Gastrointestinal hemorrhage, unspecified Status: Acute Assessment and Plan: Patient now on proton pump inhibitor therapy no additional bleeding reported. Hemoglobin has remained stable. Plan to proceed with EGD on as patient has become more stable. Continue to avoid nonsteroidal anti-inflammatory agents. Avoid anticoagulation at present (2) Acute on chronic renal failure: Code(s): N17.9 - Acute kidney failure, unspecified; N18.9 - Chronic kidney disease, unspecified Status: Acute (3) Sacral decubitus ulcer, stage IV: Code(s): L89.154 - Pressure ulcer of sacral region, stage 4 Status: Acute (4) Pressure ulcer, heel: Code(s): L89.609 - Pressure ulcer of unspecified heel, unspecified stage Status: Acute (5) Chronic atrial fibrillation: Code(s): I48.20 - Chronic atrial fibrillation, unspecified Status: Chronic (6) Acute on chronic kidney failure: Qualifiers: Acute renal failure type: with acute tubular necrosis Chronic kidney disease stage: stage 4 (severe) Qualified Code(s): N17.0 - Acute kidney failure with tubular necrosis; N18.4 - Chronic kidney disease, stage 4 (severe) Code(s): N17.9 - Acute kidney failure, unspecified; N18.9 - Chronic kidney disease, unspecified Status: Acute Subjective Date/time seen: 04/05/20 10:31 Patient more alert today. Had debridement of decubitus yesterday. No additional bleeding reported. Had hematemesis at time of admission. Review of Systems Review of Systems: All systems reviewed & are unremarkable except as noted in HPI and below ROS unobtainable: Yes unobtainable due to mental status Exam Narrative: Exam Narrative: Physical exam reveals patient to be at bed rest. HEENT exam unremarkable. Patient is anicteric. Lungs are clear. Heart without murmur. Abdomen is quite obese. Bowel sounds present soft nontender. Objective Data Vital Signs Vital Signs: Vital Signs - 24 hr 04/04/20 11:04 04/04/20 12:00 04/04/20 12:05 Temperature 97.6 F Pulse Rate 89 80 86 Respiratory Rate 18 Blood Pressure 120/100 H 128/69 128/69 Pulse Oximetry 99 04/04/20 12:57 04/04/20 13:56 04/04/20 14:00 Temperature Pulse Rate 87 80 95 Respiratory Rate 20 Blood Pressure 133/97 H 138/117 H Pulse Oximetry 97 04/04/20 15:06 04/04/20 16:00 04/04/20 17:52 Temperature 97.7 F Pulse Rate 95 77 94 Respiratory Rate 20 21 H Blood Pressure 114/50 L Pulse Oximetry 97 99 04/04/20 18:00 04/04/20 20:00 04/04/20 22:00 Temperature 98.0 F Pulse Rate 71 74 65 Respiratory Rate 20 18 18 Blood Pressure 129/58 L 99/52 L 120/87 Pulse Oximetry 98 97 97 04/05/20 00:00 04/05/20 02:00 04/05/20 04:00 Temperature Pulse Rate 60 72 60 Respiratory Rate 18 20 18 Blood Pressure 121/97 H 112/58 L 111/71 Pulse Oximetry 100 98 97 04/05/20 04:12 04/05/20 06:00 Temperature Pulse Rate 86 Respiratory Rate 18 Blood Pressure 138/79 128/89 Pulse Oximetry 99 Intake/Output Intake/Output: Intake & Output 04/02/20 04/03/20 04/04/20 04/05/20 23:59 23:59 23:59 23:59 Intake Total 1000 2950 3800 350 Output Total 340 40 50 Balance 1000 2610 3760 300 Meds/Results Medications: Active Medications Generic Name Dose Route Start Last Admin Trade Name Freq PRN Reason Stop Dose Admin Acetaminophen 650 mg 04/04/20 21:39 04/05/20 05:20 Acetaminophen 325 Mg Tablet PO 650 mg Q6H PRN Administration Mild Pain (1-3) or Fever Dextrose 12.5 gm 04/03/20 04:48 Dextrose 50% 25 Gm/50 Ml Syringe IV PUSH PRN PRN Hypoglycemia Protocol Glucagon 1 mg 04/03/20 04:48 Glucagon For Inj 1 Mg Vial IM PRN PRN Hypoglycemia Protocol Dextrose 1,000 mls @ 100 mls/hr 04/03/20 04:48 Dextrose 5% 1,000 Ml IVPB PRN PRN Hypoglycemia Protocol Sod
--- NOTE | 2020-04-05 10:40 | PM.IMPN ---
Progress Note: A&P Assessment and Plan (1) Hypotension: Code(s): I95.9 - Hypotension, unspecified Status: Acute Assessment and Plan: Patient with HoTN probably related to AFib/RVR, dehydration, acute GIB and/or sepsis. BP improved with fluid bolus but still needed to start Levophed. Able to wean off Levophed this morning. Continue to follow. (2) Metabolic acidosis with increased anion gap and accumulation of organic acids: Code(s): E87.2 - Acidosis Status: Acute Assessment and Plan: Related to the severe DINESH. AG 28 on admission. LA normal. Currently on bicarb drip. AG 23 today. No ABG listed. Appreciate nephrology input. (3) Upper GI bleed: Code(s): K92.2 - Gastrointestinal hemorrhage, unspecified Status: Acute Assessment and Plan: Suspected acute GIB with anemia. Hgb 6.6 on arrival and transfused 2 u pRBCs. Hgb climbed to 9.6. Dr. Estes consulted from ED and appreciate his recommendations. Holding on EGD until current condition improves. Heparin stopped. hgb 8.8 this morning. Continue to monitor H/H. Transfuse as needed. Continue Protonix. (4) Chronic atrial fibrillation: Code(s): I48.20 - Chronic atrial fibrillation, unspecified Status: Chronic Assessment and Plan: Patient developed RVR related to above. Not on any rate controlling medications at home. Heparin SQ but this is not for stroke ppx; heparin currently on hold. Patient converted to NSR after fluid bolus on 04/03. Cardiology following. Continue Telemetry monitoring. (5) Acute on chronic renal failure: Code(s): N17.9 - Acute kidney failure, unspecified; N18.9 - Chronic kidney disease, unspecified Status: Acute Assessment and Plan: Per physical chart, recent stay at [facility] has reports of most recent stable baseline Cr at ~2.50. Creatinine admission was 5.7 with a BUN 109. Acute on chronic renal failure likely secondary volume depletion from GI bleed and dehydration. Creatinine essentially unchanged since admission and urine output remains poor. Nephrology following. Albumin ordered. Currently on bicarb. HD being considered. (6) Complicated UTI (urinary tract infection): Code(s): N39.0 - Urinary tract infection, site not specified Status: Acute Assessment and Plan: UTI with suspected chronic Taylor - unclear duration. UA suspicious for UTI. UCx growing ESBL Klebsiella. BCx NGTD. Placed on empiric Rocephin but now changed to Zosyn yesterday Day 2. (7) Leukocytosis: Code(s): D72.829 - Elevated white blood cell count, unspecified Status: Acute Assessment and Plan: Likely secondary to UTI, although patient has chronic sacral and b/l heel wounds. Was on Vanco and Rocephin but changed to Zosyn yesterday. She remains afebrile but WBC slightly better. Follow. (8) Hyperkalemia: Code(s): E87.5 - Hyperkalemia Status: Acute Assessment and Plan: Potassium 6.2 on admission and treated appropriately. Likely related to DINESH and GIB. K 4.8 today. Currently on a bicarb drip. Follow closely (9) Essential hypertension: Code(s): I10 - Essential (primary) hypertension Status: Chronic Assessment and Plan: Soft BP on arrival. As above (10) COPD (chronic obstructive pulmonary disease): Code(s): J44.9 - Chronic obstructive pulmonary disease, unspecified Status: Chronic Assessment and Plan: No acute issues/bronchospasm. Patient on room air. (11) Diabetes mellitus: Onset
--- NOTE | 2020-04-05 10:47 | PM.PNGS ---
Progress Note: A&P Assessment and Plan (1) Pressure ulcer, heel: Code(s): L89.609 - Pressure ulcer of unspecified heel, unspecified stage Status: Acute Assessment and Plan: Right heel pressure ulcer s/p debridement yesterday. The wound looks good today with some granulation tissue forming around the edges. Will continue with Dakin's 1/4 strength dressing changes BID to the right heel. Left heel pressure ulcer remains stable, will continue local wound care with betadine swabs. Pressure offloading, elevate heels off bed, frequent turns. Subjective Subjective Date/Time Seen: 04/05/20 10:47 Post Op day: 1 Patient reports: no new complaints Interval history: Patient with no acute events overnight. Complaining of buttock pain. The patient is no longer on vasopressors at the time of my exam. Exam Skin: Other: Right heel ulcer with some granulation tissue around the edges of the wound and in the area of undermining on the medial aspect, some yellow slough in the center of the wound bed but no purulent drainage. Left heel with dry intact eschar, no changes. Applied betadine and covered with ABD/kerlex gauze. Objective Data Vital Signs Vital Signs: Vital Signs - 24 hr 04/04/20 11:04 04/04/20 12:00 04/04/20 12:05 Temperature 97.6 F Pulse Rate 89 80 86 Respiratory Rate 18 Blood Pressure 120/100 H 128/69 128/69 Pulse Oximetry 99 04/04/20 12:57 04/04/20 13:56 04/04/20 14:00 Temperature Pulse Rate 87 80 95 Respiratory Rate 20 Blood Pressure 133/97 H 138/117 H Pulse Oximetry 97 04/04/20 15:06 04/04/20 16:00 04/04/20 17:52 Temperature 97.7 F Pulse Rate 95 77 94 Respiratory Rate 20 21 H Blood Pressure 114/50 L Pulse Oximetry 97 99 04/04/20 18:00 04/04/20 20:00 04/04/20 22:00 Temperature 98.0 F Pulse Rate 71 74 65 Respiratory Rate 20 18 18 Blood Pressure 129/58 L 99/52 L 120/87 Pulse Oximetry 98 97 97 04/05/20 00:00 04/05/20 02:00 04/05/20 04:00 Temperature Pulse Rate 60 72 60 Respiratory Rate 18 20 18 Blood Pressure 121/97 H 112/58 L 111/71 Pulse Oximetry 100 98 97 04/05/20 04:12 04/05/20 06:00 Temperature Pulse Rate 86 Respiratory Rate 18 Blood Pressure 138/79 128/89 Pulse Oximetry 99 Intake/Output Intake/Output: Intake & Output 04/02/20 04/03/20 04/04/20 04/05/20 23:59 23:59 23:59 23:59 Intake Total 1000 2950 3800 350 Output Total 340 40 50 Balance 1000 2610 3760 300 Meds/Results Medications: Active Medications Generic Name Dose Route Start Last Admin Trade Name Freq PRN Reason Stop Dose Admin Acetaminophen 650 mg 04/04/20 21:39 04/05/20 05:20 Acetaminophen 325 Mg Tablet PO 650 mg Q6H PRN Administration Mild Pain (1-3) or Fever Dextrose 12.5 gm 04/03/20 04:48 Dextrose 50% 25 Gm/50 Ml Syringe IV PUSH PRN PRN Hypoglycemia Protocol Glucagon 1 mg 04/03/20 04:48 Glucagon For Inj 1 Mg Vial IM PRN PRN Hypoglycemia Protocol Dextrose 1,000 mls @ 100 mls/hr 04/03/20 04:48 Dextrose 5% 1,000 Ml IVPB PRN PRN Hypoglycemia Protocol Sodium Bicarbonate 150 meq/ 1,100 mls @ 75 mls/hr 04/03/20 16:00 04/04/20 23:57 Dextrose IV CONT 75 mls/hr .[id number] BRISSA Administration Norepinephrine Bitartrate 8 mg in 250 mls @ 0 mls/hr 04/03/20 16:40 04/05/20 04:30 Levophed 8 Mg/D5w 250 Ml IV CONT 0 mcg/min .Q0M BRISSA 0 mls/hr Titration Protocol 0 MCG/MIN Albumin Human 50 mls @ 50 mls/hr 04/04/20 12:00 04/05/20 06:20 Albutein IVPB 04/05/20 18:59 Infused Q6HR BRISSA Infusion Piperacillin Sod/Tazobactam Sod 2.25 gm in 50 mls @ 100 mls/hr 04/04/20 12:00 04/05/20 05:50 Zosyn 2.25 Gm/D5w 50 Ml IVPB Infused Q6HR BRISSA Infusion Insulin Aspart 2 - 5 units 04/03/20 06:00 04/05/20 05:29 Insulin Aspart (*Bkc) 100 Units/Ml SUB-Q Not Given Q6HR [facility] Protocol Levothyroxine Sodium 25 mcg 04/04/20 06:30 04/05/20 05:21 Le
--- NOTE | 2020-04-05 11:30 | PCDIET ---
ICU Rounding Note: Patient with little appetite on renal dialysis diet, but RN encouraging Nepro which is being provided TID. Last recorded weight is 138.7kg. Recommend obtaining new weight. Bowel Motility: +BM yesterday, per nursing. Labs Reviewed: Hgb (8.8), Hct (26.8), Glu (121), BUN (100), Cr (5.3), Cl (89), Na (133), Alb (2.4), Aleisha Ca (8.18) Meds Noted: Albumin, Synthroid, Lopressor, Levophed, Protonix, Zosyn, Bumex, D5/150mEq Sodium Bicarbonate at 75mL/hr Additional Notes: Patient had debridement of right heel stage IV wound on 04/04/20. Following daily in ICU rounds. Assessing/reassessing every 3 days.
--- NOTE | 2020-04-05 11:55 | WPDINFPN2 ---
Progress Note: A&P Assessment and Plan (1) Leukocytosis: Code(s): D72.829 - Elevated white blood cell count, unspecified Status: Acute Assessment and Plan: 1. Leukocytosis due to GI hemorrhage and necrotic wounds. One of the heel wounds debrided at bedside yesterday. WBC down a few points. 2. Renal insufficiency 3. Chemical pancreatitis REC PipTazo #2, no new dose adjustments. Subjective Date/time seen: 04/05/20 11:55 Interval history: no dyspnea no n/v no diarrhea Exam Narrative: Exam Narrative: afebrile Const: General: no acute distress Other: morbid obesity Resp: Effort & Inspection: normal respiratory effort Auscultation: clear to auscultation bilaterally Cardio: Rate: regular rate Rhythm: regular rhythm Heart sounds: no gallops and no murmurs GI: Inspection: non-distended GI Palp: Yes Soft to palpation and No Tenderness to palpation present (GI) Skin: General skin exam: normal color Objective Data Vital Signs Vital Signs: Vital Signs - 24 hr 04/04/20 12:00 04/04/20 12:05 04/04/20 12:57 Temperature 36.4 C Pulse Rate 80 86 87 Respiratory Rate 18 Blood Pressure 128/69 128/69 133/97 H Pulse Oximetry 99 04/04/20 13:56 04/04/20 14:00 04/04/20 15:06 Temperature Pulse Rate 80 95 95 Respiratory Rate 20 20 Blood Pressure 138/117 H Pulse Oximetry 97 97 04/04/20 16:00 04/04/20 17:52 04/04/20 18:00 Temperature 36.5 C Pulse Rate 77 94 71 Respiratory Rate 21 H 20 Blood Pressure 114/50 L 129/58 L Pulse Oximetry 99 98 04/04/20 20:00 04/04/20 22:00 04/05/20 00:00 Temperature 36.7 C Pulse Rate 74 65 60 Respiratory Rate 18 18 18 Blood Pressure 99/52 L 120/87 121/97 H Pulse Oximetry 97 97 100 04/05/20 02:00 04/05/20 04:00 04/05/20 04:12 Temperature Pulse Rate 72 60 Respiratory Rate 20 18 Blood Pressure 112/58 L 111/71 138/79 Pulse Oximetry 98 97 04/05/20 06:00 04/05/20 08:00 04/05/20 10:00 Temperature Pulse Rate 86 70 67 Respiratory Rate 18 17 11 L Blood Pressure 128/89 95/52 L 129/81 Pulse Oximetry 99 97 95 Intake/Output Intake/Output: Intake & Output 04/02/20 04/03/20 04/04/20 04/05/20 23:59 23:59 23:59 23:59 Intake Total 1000 2950 3800 410 Output Total 340 40 50 Balance 1000 2610 3760 360 Meds/Results Medications: Active Medications Generic Name Dose Route Start Last Admin Trade Name Freq PRN Reason Stop Dose Admin Acetaminophen 650 mg 04/04/20 21:39 04/05/20 05:20 Acetaminophen 325 Mg Tablet PO 650 mg Q6H PRN Administration Mild Pain (1-3) or Fever Dextrose 12.5 gm 04/03/20 04:48 Dextrose 50% 25 Gm/50 Ml Syringe IV PUSH PRN PRN Hypoglycemia Protocol Glucagon 1 mg 04/03/20 04:48 Glucagon For Inj 1 Mg Vial IM PRN PRN Hypoglycemia Protocol Dextrose 1,000 mls @ 100 mls/hr 04/03/20 04:48 Dextrose 5% 1,000 Ml IVPB PRN PRN Hypoglycemia Protocol Sodium Bicarbonate 150 meq/ 1,100 mls @ 75 mls/hr 04/03/20 16:00 04/04/20 23:57 Dextrose IV CONT 75 mls/hr .[id number] BRISSA Administration Norepinephrine Bitartrate 8 mg in 250 mls @ 0 mls/hr 04/03/20 16:40 04/05/20 04:30 Levophed 8 Mg/D5w 250 Ml IV CONT 0 mcg/min .Q0M BRISSA 0 mls/hr Titration Protocol 0 MCG/MIN Albumin Human 50 mls @ 50 mls/hr 04/04/20 12:00 04/05/20 06:20 Albutein IVPB 04/05/20 18:59 Infused Q6HR BRISSA Infusion Piperacillin Sod/Tazobactam Sod 2.25 gm in 50 mls @ 100 mls/hr 04/04/20 12:00 04/05/20 05:50 Zosyn 2.25 Gm/D5w 50 Ml IVPB Infused Q6HR BRISSA Infusion Insulin Aspart 2 - 5 units 04/03/20 06:00 04/05/20 05:29 Insulin Aspart (*Bkc) 100 Units/Ml SUB-Q Not Given Q6HR BRISSA Protocol Levothyroxine Sodium 25 mcg 04/04/20 06:30 04/05/20 05:21 Levothyroxine Sodium Inj 100 Mcg/5 Ml Vial IV PUSH 25 mcg DAILY@0630 BRISSA Administration Melatonin 5 mg 04/04/20 21:00 04/04/20 21:58 Melatonin 5 Mg Tabl
--- NOTE | 2020-04-05 15:24 | PM.PNGS ---
Progress Note: A&P Assessment and Plan (1) Acute on chronic kidney failure: Onset Date: ~03/2020 Qualifiers: Acute renal failure type: with acute tubular necrosis Chronic kidney disease stage: stage 4 (severe) Qualified Code(s): N17.0 - Acute kidney failure with tubular necrosis; N18.4 - Chronic kidney disease, stage 4 (severe) Code(s): N17.9 - Acute kidney failure, unspecified; N18.9 - Chronic kidney disease, unspecified Status: Acute Assessment and Plan: We were planning to place a tunneled dialysis catheter today, however patient went into RVR in the preop area and we decided to cancel the case. Plan will be to place a percutaneous dialysis catheter in the right IJ using a guidewire if dialysis is required in the next 2 days. Will maybe consider placing a tunneled dialysis catheter neck next week if patient more stable. (2) Diabetes mellitus: Onset Date: Unknown Code(s): E11.9 - Type 2 diabetes mellitus without complications Status: Chronic Assessment and Plan: No real changes, cared for by hospitalist and Nephrology. (3) Paroxysmal atrial fibrillation with rapid ventricular response: Onset Date: Unknown Code(s): I48.0 - Paroxysmal atrial fibrillation Status: Acute Assessment and Plan: Patient was stable without atrial fibrillation on an amiodarone. However, today she apparently went back into atrial fib while receiving respiratory treatment an hour or so before coming down to the preop area for surgery. Subjective Subjective Date/Time Seen: 04/05/20 15:24 Late entry for 2:00 p.m. Patient was brought to the preop area for surgery. She we were planning to place a guidewire through her current IJ catheter and insert a tunneled dialysis catheter today. However, when she arrived in the preop area it was found that she was in RVR AFib. Heart rate went up into the 100s. Therefore medications were given by anesthesia and the patient has some respiratory problems. Therefore, we cancel the case and after appropriate treatment by anesthesia the patient was taken to ICU. Dr. El talk to Dr. Estes mildly there and I notified both Dr. Mendenhall and Dr. Gorman the hospitalist that the patient was being transferred back to ICU rather than chest Pain [facility]. Sub plan talk to Dr. Mendenhall. He stated that he may ask Dr. Estes mildly to place a time percutaneous dialysis catheter and use at a couple of times and then we may consider changing that over to a tunneled dialysis catheter next week if the patient is more stable and ready for surgery. Please note patient has now been off her Xarelto almost 48 hours. Review of Systems Review of Systems: ROS unobtainable: Yes unobtainable due to medical condition and other (See previous notes) Exam Const: General: diaphoretic, ill appearing and tired appearing Nutritional Appearance: edematous Orientation/consciousness: lethargic HENMT: Head: other (Right IJ central line undisturbed but saline locked) Chest: Other: Unremarkable chest marked for possible tunneled dialysis catheter placement. Objective Data Vital Signs Vital Signs: Vital Signs - 24 hr 04/04/20 16:00 04/04/20 17:52 04/04/20 18:00 Temperature 36.5 C Pulse Rate 77 94 71 Respiratory Rate 21 H 20 Blood Pressure 114/50 L 129/58 L Pulse Oximetry 99 98 04/04/20 20:00 04/04/20 22:00 04/05/20 00:00 Temperature 36.7 C Pulse Rate 74 65 60 Respiratory Rate 18 18 18 Blood Pressure 99/52 L 120/87 121/97 H Pulse Oximetry 97 97 100 04/05/20 02:00 04/05/20 04:00 04/05/20 04:12 Temperature Pulse Rate 72 60 Respiratory Rate 20 18 Blood Pressure 112/58 L 111/71 138/79 Pulse Oximetry 98 97 04/05/20 06:00 04/05/20 08:00 04/05/20 10:00 Temperature Pulse Rate 86 70 67 Respiratory Rate 18 17 11 L Blood Pressure 128/89 95/52 L 129/81 Pulse Oximetry 99 97 95 04/05/20 12:00 04/05/20 14:00 Temperature Pulse Rate 73 65 R
[2020-04-05 16:07] LABS: Glucose Point of Care 150 (65-105)
--- NOTE | 2020-04-05 16:28 | PM.PNNEP ---
Progress Note: A&P Assessment and Plan (1) Acute on chronic renal failure: Code(s): N17.9 - Acute kidney failure, unspecified; N18.9 - Chronic kidney disease, unspecified Status: Acute Assessment and Plan: Radha has chronic kidney disease. This is based on the chart she says that she remembers seeing a kidney doctor in the past but she does not remember who it is. Recent baseline creatinine is unknown. The patient certainly has acute kidney injury as well. Renal ultrasound is unremarkable Urine eosinophils pending Urine electrolytes are not collected yet CPK is okay Bicarbonate level is gradually better. Creatinine is stable but not better Not making much urine. This is most likely related to the low blood pressure, septic syndrome, and GI bleeding. Dehydration is certainly playing a role as well. She may have a mildly delayed recovery as she could have an element of ATN Continue IV fluids and bicarb Patient has multiple comorbidities. He will hold off on dialysis for now. try couple of doses of bumetanide. She is breathing comfortably without oxygen and her electrolytes are okay/improving right now. Discussed at length with Dr. Bowie (2) Hypotension: Code(s): I95.9 - Hypotension, unspecified Status: Acute Assessment and Plan: The patient's blood pressure is better She is getting IV fluids in seems to be responding somewhat. Her atrial fibrillation was probably contributing to this but also the GI bleeding and dehydration. . She is getting cultures done and is on antibiotics. (3) Upper GI bleed: Code(s): K92.2 - Gastrointestinal hemorrhage, unspecified Status: Acute Assessment and Plan: GI is on the case. She is on pantoprazole. (4) Paroxysmal atrial fibrillation with rapid ventricular response: Onset Date: Unknown Code(s): I48.0 - Paroxysmal atrial fibrillation Status: Acute Assessment and Plan: Back in sinus rhythm right now. This is a paroxysmal event however. (5) Metabolic acidosis with increased anion gap and accumulation of organic acids: Code(s): E87.2 - Acidosis Status: Acute Assessment and Plan: The patient has metabolic acidosis.. This is improving Anion gap dropped from 24-20 (6) Hyperkalemia: Code(s): E87.5 - Hyperkalemia Status: Acute Assessment and Plan: Resolved (7) Complicated UTI (urinary tract infection): Code(s): N39.0 - Urinary tract infection, site not specified Status: Acute Assessment and Plan: The patient is on antibiotics. Urine cultures are pending (8) Essential hypertension: Code(s): I10 - Essential (primary) hypertension Status: Chronic Assessment and Plan: Antihypertensives are on hold (9) Diabetes mellitus: Onset Date: Unknown Code(s): E11.9 - Type 2 diabetes mellitus without complications Status: Chronic Assessment and Plan: On Accu-Cheks and sliding-scale insulin (10) Pressure ulcer, heel: Code(s): L89.609 - Pressure ulcer of unspecified heel, unspecified stage Status: Acute Assessment and Plan: Due to sedentary state. (11) Sacral decubitus ulcer, stage IV: Code(s): L89.154 - Pressure ulcer of sacral region, stage 4 Status: Acute Assessment and Plan: This is quite large apparently. This may be a source of her sepsis if the urine is not. Subjective Date/time seen: 04/05/20 16:28 Interval history: Radha is alert. She denies shortness of breath. She is in no pain Resting comfortably in bed Exam Narrative: Exam Narrative: WDWN in NAD skin no rash. Heels bandaged. head ncat lungs clear bilaterally cor reg no rub abd BS+ nontender and soft ext 1+ edema. Objective Data Vital Signs Vital Signs: Vital Signs - 24 hr 04/04/20 17:52 04/04/20 18:00 04/04/20 20:00 Temperature 36.7 C Pulse Rate 94
[2020-04-05] MEDS: SODIUM BICARBONATE 8.4% 150 MEQ in DEXTROSE 5% 1,000 ML 950 ML 75 MEQ IV CONT (18:20)
[2020-04-05] MEDS: ONDANSETRON INJ 4 MG/2 ML VIAL IV PUSH (18:23)
[2020-04-05 18:33] LABS: Glucose Point of Care 121 (65-105)
[2020-04-05] MEDS: fentaNYL CITRATE INJ (*CRX) 100 MCG/2 ML VIAL 12.5 MCG IV PUSH (19:56)
[2020-04-05] MEDS: MELATONIN 5 MG TABLET PO (19:56)
--- NOTE | 2020-04-05 21:15 | PC.NURSE ---
This patient, Radha Rey, was received from [ICU 9] on 04/05/20 at 2115. Patient/family oriented to unit policies and routines
--- NOTE | 2020-04-05 21:19 | PC.NURSE ---
This patient, Radha Rey, was transferred to [ [facility]] on 04/05/20 at 2119. Personal belongings sent with patient. Report given to [ ana luisa]. Appropriate documentation sent with patient.
[2020-04-06] VITALS: BP 90/55; PULSE 83; RESP 18; TEMP 36.1; O2SAT 93
[2020-04-06 04:38] VITALS: BP 90/59; PULSE 57; RESP 18; TEMP 36.6; O2SAT 92
[2020-04-06] MEDS: CENTRAL LINE FLUSH 10 ML IV PUSH ×3 (05:42→21:09)
[2020-04-06] MEDS: LEVOTHYROXINE SODIUM INJ 100 MCG/5 ML VIAL 25 MCG IV PUSH (05:42)
[2020-04-06] MEDS: ACETAMINOPHEN 325 MG TABLET 650 MG PO (05:44)
--- NOTE | 2020-04-06 08:16 | WPDGIPROGNO ---
Progress Note: A&P Assessment and Plan (1) Acute upper gastrointestinal bleeding: Code(s): K92.2 - Gastrointestinal hemorrhage, unspecified Status: Acute Assessment and Plan: No additional bleeding noted. Hemoglobin is stable. EGD will be deferred is family is considering hospice care. Continue Protonix or a similar proton pump inhibitor advised. Stress gastritis or ulceration is suspected. (2) Acute on chronic kidney failure: Onset Date: ~03/2020 Qualifiers: Acute renal failure type: with acute tubular necrosis Chronic kidney disease stage: stage 4 (severe) Qualified Code(s): N17.0 - Acute kidney failure with tubular necrosis; N18.4 - Chronic kidney disease, stage 4 (severe) Code(s): N17.9 - Acute kidney failure, unspecified; N18.9 - Chronic kidney disease, unspecified Status: Acute (3) COPD (chronic obstructive pulmonary disease): Code(s): J44.9 - Chronic obstructive pulmonary disease, unspecified Status: Chronic (4) Complicated UTI (urinary tract infection): Code(s): N39.0 - Urinary tract infection, site not specified Status: Acute (5) Pressure ulcer, heel: Code(s): L89.609 - Pressure ulcer of unspecified heel, unspecified stage Status: Acute (6) Paroxysmal atrial fibrillation with rapid ventricular response: Onset Date: Unknown Code(s): I48.0 - Paroxysmal atrial fibrillation Status: Acute Subjective Date/time seen: 04/06/20 08:16 Patient alert and comfortable this morning. Not very well oriented. No signs of additional blood loss noted. I understand family is considering comfort care measures only. Review of Systems Review of Systems: ROS unobtainable: Yes unobtainable due to mental status Exam Narrative: Exam Narrative: Physical exam patient is alert. Now on the floor period off pressor agents. Lungs are clear. Abdomen is obese. Decubitus ulcers evident. Objective Data Vital Signs Vital Signs: Vital Signs - 24 hr 04/05/20 10:00 04/05/20 12:00 04/05/20 14:00 Temperature Pulse Rate 67 73 65 Respiratory Rate 11 L 15 12 Blood Pressure 129/81 128/97 H Pulse Oximetry 95 100 100 04/05/20 16:00 04/05/20 18:00 04/05/20 20:00 Temperature 98.7 F Pulse Rate 60 75 87 Respiratory Rate 10 L 15 14 Blood Pressure 142/129 H 108/87 90/43 L Pulse Oximetry 100 100 97 04/06/20 00:00 04/06/20 04:38 Temperature 97 F L 97.8 F Pulse Rate 83 57 L Respiratory Rate 18 18 Blood Pressure 90/55 L 90/59 L Pulse Oximetry 93 92 Intake/Output Intake/Output: Intake & Output 04/03/20 04/04/20 04/05/20 04/06/20 23:59 23:59 23:59 23:59 Intake Total 2950 3800 1630 Output Total 340 40 100 50 Balance 2610 3760 1530 -50 Meds/Results Medications: Active Medications Generic Name Dose Route Start Last Admin Trade Name Freq PRN Reason Stop Dose Admin Acetaminophen 650 mg 04/04/20 21:39 04/06/20 05:44 Acetaminophen 325 Mg Tablet PO 650 mg Q6H PRN Administration Mild Pain (1-3) or Fever Fentanyl Citrate 12.5 mcg 04/05/20 15:45 04/05/20 19:56 Fentanyl Citrate Inj (*Crx) 100 Mcg/2 Ml Vial IV PUSH 12.5 mcg Q4H PRN Administration Pain Rated 7-10 Levothyroxine Sodium 25 mcg 04/04/20 06:30 04/06/20 05:42 Levothyroxine Sodium Inj 100 Mcg/5 Ml Vial IV PUSH 25 mcg DAILY@0630 BRISSA Administration Melatonin 5 mg 04/04/20 21:00 04/05/20 19:56 Melatonin 5 Mg Tablet PO 5 mg HS BRISSA Administration Ondansetron HCl 4 mg 04/05/20 14:56 04/05/20 18:23 Ondansetron Inj 4 Mg/2 Ml Vial IV PUSH 4 mg Q6H PRN Administration Nausea And Vomiting Pantoprazole Sodium 40 mg 04/04/20 21:00 04/05/20 19:56 Pantoprazole Sodium Iv 40 Mg Vial IV PUSH 40 mg Q12HR BRISSA Administration Sodium Chloride 10 ml 04/03/20 22:00 04/06/20 05:42 Central Line Flush IV PUSH 10 ml Q8HR BRISSA Administration Sodium Chloride 20 ml 04/03/20 19:08 Central
--- NOTE | 2020-04-06 09:15 | PM.IMPN ---
Progress Note: A&P Assessment and Plan (1) Hypotension: Code(s): I95.9 - Hypotension, unspecified Status: Acute Assessment and Plan: Patient with HoTN probably related to AFib/RVR, dehydration, acute GIB and/or sepsis. BP improved with fluid bolus but still needed to start Levophed. Able to wean off Levophed yesterday morning. (2) Metabolic acidosis with increased anion gap and accumulation of organic acids: Code(s): E87.2 - Acidosis Status: Acute Assessment and Plan: Related to the severe DINESH. AG 28 on admission. LA normal. Treated with a bicarb drip. AG 23 yesterday. Bicarb drip stopped. (3) Upper GI bleed: Code(s): K92.2 - Gastrointestinal hemorrhage, unspecified Status: Acute Assessment and Plan: Suspected acute GIB with anemia. Hgb 6.6 on arrival and transfused 2 u pRBCs. Hgb climbed to 9.6. Dr. Estes consulted from ED and appreciate his recommendations. Heparin stopped. Hgb 8.8 yesterday morning. (4) Chronic atrial fibrillation: Code(s): I48.20 - Chronic atrial fibrillation, unspecified Status: Chronic Assessment and Plan: Patient developed RVR related to above. Not on any rate controlling medications at home. Heparin SQ but this is not for stroke ppx; heparin currently on hold. Patient converted to NSR after fluid bolus on 04/03. (5) Acute on chronic renal failure: Code(s): N17.9 - Acute kidney failure, unspecified; N18.9 - Chronic kidney disease, unspecified Status: Acute Assessment and Plan: Per physical chart, recent stay at [facility] has reports of most recent stable baseline Cr at ~2.50. Creatinine on admission was 5.7 with a BUN 109. Acute on chronic renal failure likely secondary volume depletion from GI bleed and dehydration. Creatinine essentially unchanged since admission and urine output remains poor. Nephrology following. HD being considered but family decided to make the patient comfortable. (6) Complicated UTI (urinary tract infection): Code(s): N39.0 - Urinary tract infection, site not specified Status: Acute Assessment and Plan: UTI with suspected chronic Taylor - unclear duration. UA noted. UCx growing ESBL Klebsiella. BCx NGTD. Off abx now (7) Leukocytosis: Code(s): D72.829 - Elevated white blood cell count, unspecified Status: Acute Assessment and Plan: Likely secondary to UTI, although patient has chronic sacral and b/l heel wounds. Was on Vanco and Rocephin but changed to Zosyn. All abx stopped now. (8) Hyperkalemia: Code(s): E87.5 - Hyperkalemia Status: Acute Assessment and Plan: Potassium 6.2 on admission and treated appropriately. Likely related to DINESH and GIB. K 4.8 yesterday. Off bicarb drip. (9) Essential hypertension: Code(s): I10 - Essential (primary) hypertension Status: Chronic Assessment and Plan: Soft BP on arrival. As above (10) COPD (chronic obstructive pulmonary disease): Code(s): J44.9 - Chronic obstructive pulmonary disease, unspecified Status: Chronic Assessment and Plan: No acute issues/bronchospasm. Patient on room air. (11) Diabetes mellitus: Onset Date: Unknown Code(s): E11.9 - Type 2 diabetes mellitus without complications Status: Chronic Assessment and Plan: A1c 4.9. The patient's blood glucose no longer being checked (12) Sacral decubitus ulcer, stage IV: Code(s): L89.154 - Pressure ulce
--- NOTE | 2020-04-06 09:22 | PM.PNCARD ---
Progress Note: A&P Assessment and Plan (1) Paroxysmal atrial fibrillation with rapid ventricular response: Onset Date: Unknown Code(s): I48.0 - Paroxysmal atrial fibrillation Status: Acute Assessment and Plan: 70-y/o female with h/o paroxysmal A fib, HTN, DM, CKD, morbid obesity, hypothyroidism, COPD, osteomyelitis/MRSA bacteremia (02/2020), stage IV sacral wound, dementia, who is seen in cardiac consultation for atrial fibrillation with rapid ventricular response. -patient had presenting A fib with RVR in the setting of possible sepsis, DINESH, hyperkalemia, metabolic acidosis and anemia -She converted to normal sinus rhythm after fluid bolus. Amiodarone was never started. Agree with holding rhythm/rate control meds for now and monitor. -She is not candidate for AC. -2D echo reviewed and does not suggest cardiogenic shock. Likely septic vs hypovolemic shock on presentation. -Also renal failure persists with continued elevation in creatinine and BUN. -per nursing report, patient has been made comfort care with consideration of hospice. (2) Essential hypertension: Code(s): I10 - Essential (primary) hypertension Status: Chronic Assessment and Plan: -BP low normal and will continue to follow. (3) Sacral decubitus ulcer, stage IV: Code(s): L89.154 - Pressure ulcer of sacral region, stage 4 Status: Acute Assessment and Plan: -management as per surgery and primary services. (4) Pressure ulcer, heel: Code(s): L89.609 - Pressure ulcer of unspecified heel, unspecified stage Status: Acute Assessment and Plan: -management as per surgery and primary services. -she is status post debridement of right heel ulcer on 04/04/2020. (5) Hyperkalemia: Code(s): E87.5 - Hyperkalemia Status: Acute Assessment and Plan: -she had hyperkalemia in the setting of acute renal failure. -hyperkalemia has resolved. -renal service following. (6) Metabolic acidosis with increased anion gap and accumulation of organic acids: Code(s): E87.2 - Acidosis Status: Acute Assessment and Plan: -she had metabolic acidosis in the setting of acute renal failure and possible sepsis. (7) Acute on chronic renal failure: Code(s): N17.9 - Acute kidney failure, unspecified; N18.9 - Chronic kidney disease, unspecified Status: Acute Assessment and Plan: -Creatinine about the same with poor urine output. Nephrology on board . (8) Complicated UTI (urinary tract infection): Code(s): N39.0 - Urinary tract infection, site not specified Status: Acute Assessment and Plan: -antibiotic therapy as per primary service. (9) Upper GI bleed: Code(s): K92.2 - Gastrointestinal hemorrhage, unspecified Status: Acute Assessment and Plan: -GI deferring endoscopy in the setting of acute renal failure and transitioning level of care. Subjective Date/time seen: 04/06/20 09:22 Patient denies chest pain, dyspnea, dizziness. She reports feeling better. She is resting comfortably in bed. Patient's nurse reports that she has been made comfort care with consideration of hospice. She is status post debridement of her right heel ulcer on 04/04/2020, and an EGD has been deferred per GI in the setting of her transitioning level of care. Patient was seen and examined, chart reviewed, case discussed with nurse. Exam Narrative: Exam Narrative: Exam Narrative: General: Patient is morbidly obese, resting supine in bed. A&O to self and that she is in the hospital and that this is 2020; occasionally moaning in pain. HEENT: Normocephalic, EOMI, oral mucosa dry Cardiovascular: Regular in rate and rhythm. No notable murmur, rub, or gallop. No heave. Carotid, radial, and posterior tibial pulses 1+ bilaterally. Respiratory: Lungs clear to auscultation all mas. Non-labored breathing. Breath sounds diminished bilaterally. Ab
[2020-04-06] MEDS: fentaNYL CITRATE INJ (*CRX) 100 MCG/2 ML VIAL 12.5 MCG IV PUSH ×3 (09:30→21:08)
[2020-04-06] MEDS: SOD HYPOCHLORITE 1/4 STRENGTH 473 ML 1 APPLIC TOPICAL ×2 (09:39→21:09)
[2020-04-06] MEDS: PANTOPRAZOLE SODIUM IV 40 MG VIAL IV PUSH ×2 (09:40→21:09)
[2020-04-06] MEDS: TOLNAFTATE 1% POWDER 45 GM BTL 1 APPLIC TOPICAL ×2 (09:40→21:10)
[2020-04-06 12:00] VITALS: BP 100/62; PULSE 60; RESP 18; TEMP 36.7; O2SAT 94
--- NOTE | 2020-04-06 15:21 | WPDINFPN2 ---
Progress Note: A&P Assessment and Plan (1) Leukocytosis: Code(s): D72.829 - Elevated white blood cell count, unspecified Status: Acute Assessment and Plan: 1. Leukocytosis due to GI hemorrhage and necrotic wounds. POD # 2 debridement 2. Renal insufficiency 3. Chemical pancreatitis REC PipTazo #3, no new dose adjustments. Subjective Date/time seen: 04/06/20 15:21 Interval history: feesl better, but pain all over Exam Narrative: Exam Narrative: afebrile Const: Other: massive obesity Resp: Effort & Inspection: normal respiratory effort Auscultation: clear to auscultation bilaterally Cardio: Rate: regular rate Rhythm: regular rhythm Heart sounds: no murmurs GI: Inspection: non-distended GI Palp: Yes Soft to palpation and No Tenderness to palpation present (GI) Extrem: General: edema Objective Data Vital Signs Vital Signs: Vital Signs - 24 hr 04/05/20 16:00 04/05/20 18:00 04/05/20 20:00 Temperature 37.1 C Pulse Rate 60 75 87 Respiratory Rate 10 L 15 14 Blood Pressure 142/129 H 108/87 90/43 L Pulse Oximetry 100 100 97 04/06/20 00:00 04/06/20 04:38 04/06/20 12:00 Temperature 36.1 C L 36.6 C 36.7 C Pulse Rate 83 57 L 60 Respiratory Rate 18 18 18 Blood Pressure 90/55 L 90/59 L 100/62 Pulse Oximetry 93 92 94 Intake/Output Intake/Output: Intake & Output 04/03/20 04/04/20 04/05/20 04/06/20 23:59 23:59 23:59 23:59 Intake Total 2950 3800 1630 Output Total 340 40 100 50 Balance 2610 3760 1530 -50 Meds/Results Medications: Active Medications Generic Name Dose Route Start Last Admin Trade Name Freq PRN Reason Stop Dose Admin Acetaminophen 650 mg 04/04/20 21:39 04/06/20 05:44 Acetaminophen 325 Mg Tablet PO 650 mg Q6H PRN Administration Mild Pain (1-3) or Fever Fentanyl Citrate 12.5 mcg 04/05/20 15:45 04/06/20 13:09 Fentanyl Citrate Inj (*Crx) 100 Mcg/2 Ml Vial IV PUSH 12.5 mcg Q4H PRN Administration Pain Rated 7-10 Levothyroxine Sodium 25 mcg 04/04/20 06:30 04/06/20 05:42 Levothyroxine Sodium Inj 100 Mcg/5 Ml Vial IV PUSH 25 mcg DAILY@0630 BRISSA Administration Melatonin 5 mg 04/04/20 21:00 04/05/20 19:56 Melatonin 5 Mg Tablet PO 5 mg HS BRISSA Administration Ondansetron HCl 4 mg 04/05/20 14:56 04/05/20 18:23 Ondansetron Inj 4 Mg/2 Ml Vial IV PUSH 4 mg Q6H PRN Administration Nausea And Vomiting Pantoprazole Sodium 40 mg 04/04/20 21:00 04/06/20 09:40 Pantoprazole Sodium Iv 40 Mg Vial IV PUSH 40 mg Q12HR BRISSA Administration Sodium Chloride 10 ml 04/03/20 22:00 04/06/20 13:10 Central Line Flush IV PUSH 10 ml Q8HR BRISSA Administration Sodium Chloride 20 ml 04/03/20 19:08 Central Line Flush IV PUSH PRN PRN after blood draws Sodium Chloride 20 ml 04/03/20 19:09 Central Line Flush IV PUSH PRN PRN after blood draws Sodium Hypochlorite 1 applic 04/03/20 09:25 04/06/20 09:39 Sod Hypochlorite 1/4 Strength 473 Ml TOPICAL 1 applic Q12HR BRISSA Administration Tolnaftate 1 applic 04/04/20 21:00 04/06/20 09:40 Tolnaftate 1% Powder 45 Gm Btl TOPICAL 1 applic Q12HR BRISSA Administration Radiology Results: ITS Impressions Abdomen/Pelvis CT 04/03/20 06:25 IMPRESSION: Large umbilical hernia containing one loop of nonobstructed colon Hepatic steatosis Renal Ultrasound 04/03/20 15:41 IMPRESSION: 1. Normal kidneys. No hydronephrosis. Chest X-Ray 04/05/20 06:41 IMPRESSION: Left internal jugular central venous catheter tip overlying proximal superior vena cava; no pneumothorax No active cardiopulmonary disease Labs Labs: Laboratory Results - last 24 hr 04/05/20 04/05/20 12:54 18:30 POC Capillary Glucose 150 H 121 H
[2020-04-06 16:01] VITALS: BP 97/73; PULSE 67; RESP 18; TEMP 36.1; O2SAT 97
--- NOTE | 2020-04-06 17:48 | PM.DS ---
DS: Admitting Diagnosis Admitting Diagnosis Admitting Diagnosis: Nausea, vomiting DS: Discharge Diagnosis Discharge Diagnosis (1) Acute on chronic renal failure: Code(s): N17.9 - Acute kidney failure, unspecified; N18.9 - Chronic kidney disease, unspecified Status: Acute Assessment and Plan: Per physical chart, recent stay at [facility] has reports of most recent stable baseline Cr at ~2.50. Creatinine on admission was 5.7 with a BUN 109. Acute on chronic renal failure likely secondary volume depletion from GI bleed and dehydration. Creatinine essentially unchanged since admission and urine output remains poor. Nephrology following. HD was recommended but family decided to make the patient comfortable. Family met with hospice. They were agreeable to proceed with hospice care. Hospice felt patient would benefit from inpatient care given her uncontrolled pain. Patient to be discharged and readmitted under hospice care. (2) Hypotension: Code(s): I95.9 - Hypotension, unspecified Status: Acute Assessment and Plan: Patient with HoTN probably related to AFib/RVR, dehydration, acute GIB and/or sepsis. BP improved with fluid bolus but still needed to start Levophed. Able to wean off Levophed (3) Metabolic acidosis with increased anion gap and accumulation of organic acids: Code(s): E87.2 - Acidosis Status: Acute Assessment and Plan: Related to the severe DINESH. AG 28 on admission. LA normal. Treated with a bicarb drip. (4) Upper GI bleed: Code(s): K92.2 - Gastrointestinal hemorrhage, unspecified Status: Acute Assessment and Plan: Suspected acute GIB with anemia. Hgb 6.6 on arrival and transfused 2 u pRBCs. Hgb climbed to 9.6. Dr. Estes consulted from ED. Heparin stopped. Hgb 8.8 on last check. (5) Chronic atrial fibrillation: Code(s): I48.20 - Chronic atrial fibrillation, unspecified Status: Chronic Assessment and Plan: Patient developed RVR related to above. Not on any rate controlling medications at home. Heparin SQ but this is not for stroke ppx; heparin held. Patient converted to NSR after fluid bolus on 04/03. (6) Complicated UTI (urinary tract infection): Code(s): N39.0 - Urinary tract infection, site not specified Status: Acute Assessment and Plan: UTI with suspected chronic Taylor - unclear duration. UA noted. UCx growing ESBL Klebsiella. BCx NGTD. Abx stopped when changed to comfort measures. (7) Leukocytosis: Code(s): D72.829 - Elevated white blood cell count, unspecified Status: Acute Assessment and Plan: Likely secondary to UTI, although patient has chronic sacral and b/l heel wounds. Was on Vanco and Rocephin but changed to Zosyn. All abx stopped now. (8) Hyperkalemia: Code(s): E87.5 - Hyperkalemia Status: Acute Assessment and Plan: Potassium 6.2 on admission and treated appropriately. Likely related to DINESH and GIB. K 4.8 yesterday. Off bicarb drip. (9) Essential hypertension: Code(s): I10 - Essential (primary) hypertension Status: Chronic Assessment and Plan: Soft BP on arrival. As above (10) COPD (chronic obstructive pulmonary disease): Code(s): J44.9 - Chronic obstructive pulmonary disease, unspecified Status: Chronic Assessment and Plan: No acute issues/bronchospasm. Patient was on room air. (11) Diabetes mellitus: Onset Date: Unknown Code(s): E11.9 - Type 2 diabetes mellitus without complica
[2020-04-06 20:00] VITALS: BP 92/40; PULSE 77; RESP 18; TEMP 36.1; O2SAT 100
[2020-04-06] MEDS: MELATONIN 5 MG TABLET PO (21:09)
[2020-04-08 15:27] LABS: Chloride Rand Ur <20 mmol/L (32-290); Creatinine Random Urine 56 mg/dL (20-275)
== END 2020-04-06 19:00 | disposition hospice, inpatient (51) | DRG 580 ==
LOC: ANHED 04-03 02:27 → ANH3MEDSUR 04-03 07:18 → ANHIMU 04-03 12:02 → ANHICU 04-04 16:16 → ANH3MED 04-06 01:54 → ANH3MEDSUR 04-10 13:20 → ANHICU 04-10 13:20 → ANHIMU 04-10 13:20
PROVIDERS: Internal Medicine; Internal Medicine Cardiovascular Disease; Internal Medicine Gastroenterology; Internal Medicine Nephrology; Admitting Provider Family Medicine; Emergency Provider Emergency Medicine; PCP Family Medicine; Visit Provider Physician Assistant
DX: L89.614 Pressure ulcer of right heel, stage 4 (principal); N39.0 Urinary tract infection, site not specified; K92.2 Gastrointestinal hemorrhage, unspecified; N17.9 Acute kidney failure, unspecified; E87.2 Acidosis; Z68.42 Body mass index [BMI] 45.0-49.9, adult; Z16.12 Extended spectrum beta lactamase (ESBL) resistance; I48.20 Chronic atrial fibrillation, unspecified; L89.154 Pressure ulcer of sacral region, stage 4; E66.01 Morbid (severe) obesity due to excess calories; B96.1 Klebsiella pneumoniae [K. pneumoniae] as the cause of diseases classified elsewhere; I95.9 Hypotension, unspecified; L89.620 Pressure ulcer of left heel, unstageable; E87.5 Hyperkalemia; E11.22 Type 2 diabetes mellitus with diabetic chronic kidney disease; I12.9 Hypertensive chronic kidney disease with stage 1 through stage 4 chronic kidney disease, or unspecified chronic kidney disease; N18.9 Chronic kidney disease, unspecified; D53.9 Nutritional anemia, unspecified; Z66 Do not resuscitate; E86.0 Dehydration; E86.1 Hypovolemia; E03.9 Hypothyroidism, unspecified; F03.90 Unspecified dementia, unspecified severity, without behavioral disturbance, psychotic disturbance, mood disturbance, and anxiety; J44.9 Chronic obstructive pulmonary disease, unspecified; D47.3 Essential (hemorrhagic) thrombocythemia; E78.5 Hyperlipidemia, unspecified; Z79.01 Long term (current) use of anticoagulants; Z86.14 Personal history of Methicillin resistant Staphylococcus aureus infection; Z97.8 Presence of other specified devices
CPT/HCPCS: 36415; 36430; 71045; 74176; 76775; 80048; 80053; 81001; 82436; 82533; 82550; 82570; 82607; 82746; 82948; 83036; 83605; 83690; 83735; 84100; 84133; 84156; 84300; 84439; 84443; 84484; 85014; 85018; 85025; 85610; 85730; 85999; 86140; 86850; 86900; 86901; 86920; 87040; 87077; 87086; 87088; 87186; 93005; 93306; 96374; 97161; 97166; 99285; A9270; C1751; C9113; J0131; J0696; J1160; J1815; J2405; J2543; J3010; J3370; J7030; J7040; J7050; J7060; J7070; J7120; P9016; P9047

== ENCOUNTER 2020-04-06 19:00 | HOS | payer OTHER, SELFPAY ==
[2020-04-07] MEDS: HYDROmorphone HCL/PF (*CRX) 50 MG in SODIUM CHLORIDE 0.9% IV 95 ML IV CONT (03:42)
[2020-04-07 08:00] VITALS: BMI 47.9
[2020-04-07] MEDS: POVIDONE-IODINE 10% SOLUTION 118 ML BOTTLE TOPICAL (09:05)
[2020-04-07] MEDS: SOD HYPOCHLORITE 1/4 STRENGTH 473 ML 1 APPLIC TOPICAL ×2 (09:06→20:30)
[2020-04-07] MEDS: LORazepam INJ (*CRX) 2 MG/ML VIAL 1 MG IV PUSH (09:39)
[2020-04-07 14:00] VITALS: BP 39/29; PULSE 91; RESP 12; TEMP 35.6; O2SAT 83
--- NOTE | 2020-04-07 16:03 | PM.IMHP ---
H&P: HPI History of Present Illness Date/Time: 04/07/20 16:03 Chief Complaint: uncontrolled pain, ESRD Narrative: Radha Rey is a 70 year old female under recent straight to [place] long-term acute care. She was being treated for severe decubitus ulcers. She had chronic kidney disease stage 4. She is also diabetic with atrial fibrillation. She was admitted to [facility] with gastrointestinal bleeding. She had acute kidney failure with hyperkalemia. Hyperkalemia was treated medically. She was treated with IV fluids for hypotension. Dialysis were recommended but family declined wished to make her comfort care only. she was experiencing uncontrolled pain and restlessness related to her end-stage kidney disease and decubitus ulcers. Because of this she was admitted to inpatient hospice on 04/06. Continuous IV hydromorphone was initiated. She has remained comfortable overnight except when repositioned. Review of Systems Review of Systems: ROS unobtainable: Yes unobtainable due to medical condition PMFSH Past Medical History Medical History Chronic atrial fibrillation Chronic kidney disease, stage 3 COPD (chronic obstructive pulmonary disease) Diabetes mellitus (Unknown) Essential hypertension Hyperlipidemia Osteomyelitis right heel Pain associated with wound Pain in wound Paroxysmal atrial fibrillation with rapid ventricular response (Unknown) Pressure ulcer, heel b/l heels; recent right heel osteomyelitis 02/2020 Sacral decubitus ulcer, stage IV Family History Family History (Updated 04/07/20 @ 20:52 by Alozno Jones MD) Father Unknown family medical history Mother Unknown family medical history Social History Social History Smoking status: Never smoker Alcohol intake: unknown Substance use: unknown Gender identity (if verbalized by the patient): Female Spiritual care concerns: No Meds Home Medications and Allergies Home Medications Medication Instructions Recorded Confirmed Type acetaminophen 650 mg PO Q6H PRN 04/02/20 04/03/20 History diphenhydramine HCl [Diphenhist] 25 mg PO HS 04/02/20 04/03/20 History docusate sodium 100 mg PO BID PRN 04/02/20 04/03/20 History heparin, porcine (PF) 5,000 unit SUBCUT Q8H 04/02/20 04/03/20 History magnesium citrate 296 ml PO ONCE 04/02/20 04/03/20 History quetiapine 25 mg PO HS 04/02/20 04/03/20 History zinc sulfate 220 mg PO DAILY 04/02/20 04/03/20 History ascorbic acid (vitamin C) 1,000 mg PO DAILY 04/03/20 04/03/20 History bisacodyl 10 mg RECTAL DAILY PRN 04/03/20 04/03/20 History levothyroxine [Levoxyl] 50 mcg PO DAILY 04/03/20 04/03/20 History magnesium hydroxide [Milk of 30 ml PO PRN PRN 04/03/20 04/03/20 History Magnesia] multivitamin [Multiple Vitamins] 1 tablet PO DAILY 04/03/20 04/03/20 History Allergies Allergy/AdvReac Type Severity Reaction Status Date / Time No Known Allergies Allergy Unknown Verified 04/03/20 04:47 Vital Signs Vital Signs - 24 hr 04/07/20 14:00 Temperature 96.0 F L Pulse Rate 91 Respiratory Rate 12 Blood Pressure 39/29 L Pulse Oximetry 83 L Assessment and Plan Assessment and plan (1) Palliative care by specialist: Code(s): Z51.5 - Encounter for palliative care Status: Acute Assessment and Plan: Meets inpatient hospice criteria due to uncontrolled pain related to decubitus ulcers and end-stage kidney disease requiring continuous IV hydromorphone for control Remainder palliative med regimen as ordered (2) Sacral decubitus ulcer, stage IV: Code(s): L89.154 - Pressure ulcer of sacral region, stage 4 Status: Acute (3) Pressure ulcer, heel: Qualifiers: Pressure injury stage: unstageable Laterality: unspecified laterality Qualified Code(s): L89.600 - Pressure ulcer of unspecified heel, unstageable Code(s): L89.609 - Pressure ul
[2020-04-07 20:00] VITALS: BP 76/55; PULSE 71; RESP 28; TEMP 36.4; O2SAT 97
[2020-04-08] MEDS: HYDROmorphone HCL/PF (*CRX) 50 MG in SODIUM CHLORIDE 0.9% IV 95 ML IV CONT (03:41)
[2020-04-08 08:00] VITALS: BP 69/24; PULSE 66; RESP 8; TEMP 35.4; O2SAT 83
--- NOTE | 2020-04-08 10:23 | PM.IMPN ---
Progress Note: A&P Assessment and Plan (1) Palliative care by specialist: Code(s): Z51.5 - Encounter for palliative care Status: Acute Assessment and Plan: Meets inpatient hospice criteria due to uncontrolled pain related to decubitus ulcers and end-stage kidney disease requiring continuous IV hydromorphone for control Remainder palliative med regimen as ordered (2) Sacral decubitus ulcer, stage IV: Code(s): L89.154 - Pressure ulcer of sacral region, stage 4 Status: Acute Assessment and Plan: Continue wound care (3) Pressure ulcer, heel: Qualifiers: Pressure injury stage: unstageable Laterality: unspecified laterality Qualified Code(s): L89.600 - Pressure ulcer of unspecified heel, unstageable Code(s): L89.609 - Pressure ulcer of unspecified heel, unspecified stage Status: Acute Assessment and Plan: Continue wound care (4) Paroxysmal atrial fibrillation with rapid ventricular response: Onset Date: Unknown Code(s): I48.0 - Paroxysmal atrial fibrillation Status: Acute (5) Hyperkalemia: Code(s): E87.5 - Hyperkalemia Status: Acute (6) Acute on chronic renal failure: Qualifiers: Acute renal failure type: unspecified Chronic kidney disease stage: stage 5, not on chronic dialysis Qualified Code(s): N17.9 - Acute kidney failure, unspecified; N18.5 - Chronic kidney disease, stage 5 Code(s): N17.9 - Acute kidney failure, unspecified; N18.9 - Chronic kidney disease, unspecified Status: Acute (7) Upper GI bleed: Code(s): K92.2 - Gastrointestinal hemorrhage, unspecified Status: Acute (8) Complicated UTI (urinary tract infection): Code(s): N39.0 - Urinary tract infection, site not specified Status: Acute (9) Essential hypertension: Code(s): I10 - Essential (primary) hypertension Status: Chronic (10) Diabetes mellitus: Onset Date: Unknown Qualifiers: Diabetes mellitus type: type 2 Diabetes mellitus medical terminologist insulin use: unspecified medical terminologist insulin use status Diabetes mellitus complication status: with kidney complications Diabetes mellitus complication detail: with chronic kidney disease Chronic kidney disease stage: stage 5, not on chronic dialysis Qualified Code(s): E11.22 - Type 2 diabetes mellitus with diabetic chronic kidney disease; N18.5 - Chronic kidney disease, stage 5 Code(s): E11.9 - Type 2 diabetes mellitus without complications Status: Chronic Subjective Date/time seen: 04/08/20 10:23 Interval history: Admitted 04/06 inpatient hospice due to pain and ESRD. 04/08: Comfortable. Family member at bedside. Review of Systems Review of Systems: ROS unobtainable: Yes unobtainable due to medical condition Exam Narrative: Exam Narrative: Exam: a morbidly obese patient lying in her hospital bed breathing was unlabored. She was sleeping soundly. Face was symmetric. Neck without JVD. Chest coarse crackles throughout. Heart regular with no audible murmur. Abdomen protuberant with hypoactive bowel sounds. Extremities with trace pitting and 2 to 3+ nonpitting edema. Tone was symmetric. Not able to test strength. She did not respond to verbal or tactile stimuli. Objective Data Vital Signs Vital Signs: Vital Signs - 24 hr 04/07/20 14:00 04/07/20 20:00 04/08/20 08:00 Temperature 96.0 F L 97.6 F 95.8 F L Pulse Rate 91 71 66 Respiratory Rate 12 28 H 8 L Blood Pressure 39/29 L 76/55 L 69/24 L Pulse Oximetry 83 L 97 83 L Intake/Output Intake/Output: Intake & Output 04/05/20 04/06/20 04/07/20 04/08/20 23:59 23:59 23:59 23:59 Intake Total 13.8 9.6 Output Total 0 Balance 13.8 9.6 Meds/Results Medications: Active Medications Generic Name Dose Route Start Last Admin Trade Name Freq PRN Reason Stop Dose Admin Acetaminophen 650 mg 04/07/20 08:30 Acetaminophen 650 Mg Suppository RECTAL
[2020-04-08] MEDS: SOD HYPOCHLORITE 1/4 STRENGTH 473 ML 1 APPLIC TOPICAL (11:20)
[2020-04-08] MEDS: POVIDONE-IODINE 10% SOLUTION 118 ML BOTTLE TOPICAL (11:22)
--- NOTE | 2020-04-08 20:42 | PC.NURSE ---
1953 [employer] and Hospitalist notified patient found in bed . 2049 spoke to son to verify home of [place] in [place] and refuses need for autopsy. States will not be coming up to see patient.
--- NOTE | 2020-04-08 22:08 | PC.NURSE ---
[place] [facility] [place]
--- NOTE | 2020-04-09 18:11 | PM.DDS ---
Discharge Sum: Prov Provider Primary care physician: Zeb Hutchison MD Admitting provider: Alonzo Jones MD Discharge Sum: Diag Contributing Factors (1) Acute on chronic renal failure: (2) Upper GI bleed: (3) Hyperkalemia: (4) Sacral decubitus ulcer, stage IV: (5) Pressure ulcer, heel: (6) Paroxysmal atrial fibrillation with rapid ventricular response: (7) Complicated UTI (urinary tract infection): (8) Essential hypertension: (9) Diabetes mellitus: Discharge Sum: Summary Date and Time Date of admission: 04/07/20 01:18 Summary Details: Admitted to inpatient hospice service for uncontrolled pain. Medications were titrated to comfort. Patient peacefully. Additional Data Attending physician: Alonzo Jones MD
== END 2020-04-08 20:15 | disposition expired | DRG 951 ==
PROVIDERS: Admitting Provider Internal Medicine; PCP Family Medicine; Visit Provider Internal Medicine
DX: Z51.5 Encounter for palliative care (principal); L89.154 Pressure ulcer of sacral region, stage 4; N18.6 End stage renal disease; N17.9 Acute kidney failure, unspecified; I12.0 Hypertensive chronic kidney disease with stage 5 chronic kidney disease or end stage renal disease; K92.2 Gastrointestinal hemorrhage, unspecified; N39.0 Urinary tract infection, site not specified; E11.22 Type 2 diabetes mellitus with diabetic chronic kidney disease; L89.600 Pressure ulcer of unspecified heel, unstageable; I48.0 Paroxysmal atrial fibrillation; E87.5 Hyperkalemia; R52 Pain, unspecified
CPT/HCPCS: A9270; J1170; J2060